=== PATIENT | male | born 1955 | race Caucasian/White ===

== ENCOUNTER 2017-02-21 12:48 | Emergency (ER) | payer OTHER, MEDICARE ==
[2017-02-21 13:05] VITALS: BP 167/111
[2017-02-21] MEDS ORDERED: Ketorolac 30 MG/ML SDV IM ONE (13:48)
--- NOTE | 2017-02-21 13:57 | EDM.PDOC ---
ED HPI GENERAL MEDICAL PROBLEM - General Chief Complaint: Back Pain or Injury Stated Complaint: FELL AND HURT BACK Time Seen by Provider: 02/21/17 13:22 Source of Information: Reports: Patient History Limitations: Reports: No Limitations - History of Present Illness INITIAL COMMENTS - FREE TEXT/NARRATIVE: Patient presents to ER today for complaints of low back pain, radiation to left posterior thigh and pain to knee with instability after a fall yesterday at 1630. Duration: Hour(s): Location: Reports: Back, Lower Extremity, Left Quality: Reports: Ache, Burning, Throbbing Severity: Moderate Improves with: Reports: Other (rest) Worsens with: Reports: Movement Context: Reports: Activity Associated Symptoms: Reports: No Other Symptoms Treatments [employer]: Reports: Other (see below) (hydrocodone) - Related Data Allergies Allergy/AdvReac Type Severity Reaction Status Date / Time clindamycin Allergy Bradycardia Verified 02/21/17 13:10 Sulfa (Sulfonamide Allergy Lethargy Verified 10/16/13 10:06 Antibiotics) venom-honey bee Allergy Anaphylactic Verified 11/24/14 07:46 [bee venom (honey bee)] Shock Home Meds: Home Meds Albuterol Sulfate [Proair Hfa] 8.5 gm IH QID PRN 10/16/13 [History] Calcium Carbonate/Vitamin D3 [Calcium 500 + Vit D 200 Tablet] 600 each PO BID [History] Cyclobenzaprine [Flexeril] 10 mg PO TID PRN 10/16/13 [History] Fluticasone/Salmeterol [Advair 100-50 Diskus] 1 puff INH BID 10/16/13 [History] Furosemide [Lasix] 10 mg PO ASDIRECTED 10/16/13 [History] Gabapentin [Gabapentin] 1,200 mg PO BID 10/16/13 [History] Hydrocodone/Acetaminophen [[place] 10-325] 10 tab PO Q4H PRN 10/16/13 [History] Magnesium Amino Acid Chelate [Magnesium] 100 mg PO DAILY 10/16/13 [History] Multivitamin [Men's Multi-Vitamin] 1 each PO DAILY 10/16/13 [History] Mycophenolate Mofetil [Mycophenolate Mofetil] 1,500 mg PO BID 10/16/13 [History] Propranolol [Inderal LA 24 Hr] 120 mg PO BEDTIME 10/16/13 [History] Warfarin Sodium [Warfarin Sodium] 4 mg PO ASDIRECTED 10/16/13 [History] predniSONE [Prednisone] 20 mg PO DAILY 10/16/13 [History] fentaNYL [Duragesic] 50 mcg TOP ASDIRECTED 01/30/14 [History] Warfarin [Coumadin] 3 mg PO ASDIRECTED 11/24/14 [History] amLODIPine [Norvasc] 1 tab PO DAILY 02/21/17 [History] Past Medical History Cardiovascular History: Reports: Hypertension Respiratory History: Reports: Cystic Fibrosis, PE Genitourinary History: Reports: Renal Disease Musculoskeletal History: Reports: Back Pain, Chronic Other Musculoskeletal History: Spinal surgeries. Is managed through Dr. Cuba of [facility] [place], [place]. Endocrine/Metabolic History: Reports: Hypothyroidism, Other (See Below) Other Endocrine/Metabolic History: wagners - Past Surgical History Musculoskeletal Surgical History: Reports: Knee Replacement, Other (See Below) Other Musculoskeletal Surgeries/Procedures:: spinal fusion Social & Family History - Tobacco Use Smoking Status *Q: Never Smoker Second Hand Smoke Exposure: No - Alcohol Use Days Per Week of Alcohol Use: 0 - Recreational Drug Use Recreational Drug Use: No ED ROS GENERAL - Review of Systems Review Of Systems: See Below Constitutional: Reports: No Symptoms, Other (Patient reports he has been attempting to decrease amount of fentanyl patch use and opiate use. He was on fentanyl 100mcg patch previously. Now He uses 62mcg patch. He was on oxy, he is now on hydrocodone. He reports having to take up to 10 hydrocodone in one day to control his pain. ). Denies: Fever, Chills, Malaise, Weakness HEENT: Reports: No Symptoms Respiratory: Denies: Shortness of Breath, Wheezing, Pleuritic Chest Pain, Cough , Sputum Cardiovascular: Denies: Chest Pain, Blood Pressure Problem, Dyspnea on Exertion , Edema, Lightheadedness, Palpitations, Syncope Endocrine: Reports: No Symptoms GI/Abdominal: Reports: Nausea, Other (Nausea with significant pain. ). Denies: Abdominal Pain, Constipation, Diarrhea, Hematemesis, Hematochezia, Vomiting : Reports: Other (Patient denies change in perineal sensation or function. ). Denies: Discharge, Dysuria, Frequency, Hematuria, Incontinence, Urgency, Urinary Retention Musculoskeletal: Reports: Back Pain, Joint Pain, Joint Swelling, Muscle Pain, Other (Left knee pain. Low back pain, denies bilateral saddle anesthesia and bilateral sciatica. He denies IV drug use. ) Skin: Reports: No Symptoms. Denies: Cyanosis, Bruising, Pruritis, Rash, Erythema, Wound, Change in Color Neurological: Reports: Other (Patient reports difficulty ambulating due to chronic hyperfelxion of left knee and chronic low back pain. Limping gait favoring left leg. ). Denies: Headache, Syncope, Tingling, Weakness, Change in Speech Psychiatric: Reports: No Symptoms Hematologic/Lymphatic: Reports: No Symptoms Immunologic: Reports: No Symptoms Free Text/Narrative/Comment: Patient also reports allergies to cymbalta and lurica. ED EXAM,LOWER BACK PAIN/INJURY - Physical Exam Exam: See Below Exam Limited By: No Limitations General Appearance: Alert, WD/WN, No Apparent Distress, Other (Patient has been working at his local cabin getting it ready. He does this work on his own without assistance. ) Eye Exam: Bilateral Eye: Normal Inspection, PERRL, Vision Changes Ears: Normal External Exam, Normal Canal, Hearing Grossly Normal, Normal TMs Nose: Normal Inspection, Normal Mucosa, No Blood Throat/Mouth: Normal Inspection, Normal Lips, Normal Teeth, Normal Gums, Normal Oropharynx, Normal Voice, No Airway Compromise Head: Atraumatic, Normocephalic Neck: Normal Inspection, Non-Tender, Full Range of Motion Respiratory/Chest: No Respiratory Distress, Lungs Clear, Normal Breath Sounds, No Accessory Muscle Use, Chest Non-Tender Cardiovascular: Normal Peripheral Pulses, Regular Rate, Rhythm, No Edema, No Gallop, No Murmur, No Rub GI/Abdominal: Normal Bowel Sounds, Soft, Non-Tender, No Organomegaly, No Distention, No Mass Back Exam: Normal Inspection, Full Range of Motion, Other (Patient complains of pain with radiculopathy to left buttock and posterior left thigh. ). No: CVA Tenderness (R), CVA Tenderness (L), Decreased Range of Motion, Muscle Spasm, Paraspinal Tenderness, Vertebral Tenderness Extremities: Normal Inspection, Other (Pain to left knee with external and internal rotation. Past left TKA. Edema noted to left knee without erythema. Right lower extremity normal. Limping gait favoring left leg - slight. ) Neurological: Alert, Normal Mood/Affect, Normal Dorsiflexion, CN II-XII Intact, Oriented x 3, Other (Negative straight leg raise to bilateral legs. ). No: Tremor, Saddle Anesthesia, Difficulty Walking Psychiatric: Normal Affect, Normal Mood Skin Exam: Warm, Dry, Intact, Normal Color, No Rash Lymphatic: No Adenopathy Course - Vital Signs Last Recorded V/S: Last Vital Signs Temp 37.1 C 02/21/17 13:20 Pulse 95 02/21/17 13:20 Resp 16 02/21/17 13:20 BP 167/111 H 02/21/17 13:20 Pulse Ox 95 02/21/17 13:20 - Orders/Labs/Meds Orders: Active Orders 24 hr Category Date Time Status Knee 3V Lt [CR] Stat Exams 02/21/17 13:50 Ordered Lumbar Spine 2 or 3V [CR] Stat Exams 02/21/17 13:51 Ordered Sacroiliac Joint Min 3V [CR] Stat Exams 02/21/17 13:51 Taken fentaNYL [Duragesic] Med 02/21/17 15:00 Active 100 mcg TRDERM Q72H Medication Orders Fentanyl (Duragesic) 100 mcg TRDERM Q72H NANCY Last Admin: 02/21/17 14:56 Dose: 100 mcg Patient to radiology, chronic use of steroid. Meds: Medications Generic Name Dose Route Start Last Admin Trade Name Freq PRN Reason Stop Dose Admin Fentanyl 100 mcg 02/21/17 15:00 02/21/17 14:56 Duragesic TRDERM 100 mcg Q72H NANCY Administration Discontinued Medications Generic Name Dose Route Start Last Admin Trade Name Freq PRN Reason Stop Dose Admin Ketorolac Tromethamine 30 mg 02/21/17 13:48 02/21/17 14:13 Toradol IM 02/21/17 13:49 30 mg ONETIME ONE Administration Remove current 62.5 mcg fentanyl patch, replace with 100mcg patch. - Radiology Interpretation Free Text/Narrative:: X-rays reviewed with Dr. Perez. No acute injury or findings noted. - Re-Assessments/Exams Free Text/Narrative Re-Assessment/Exam: 02/21/17 14:57 Pain slightly improved after use of toradol 30mg IM. 02/21/17 15:00 Free Text/Narrative Re-Assessment/Exam: 02/21/17 14:25 Reviewed x-rays with patient, discussed use of pain medication and follow up with pain clinic. Patient questions answered, he is in agreement with plan. Departure - Departure Time of Disposition: 14:47 Disposition: Home, Self-Care 01 Condition: fair Clinical Impression: Left lateral knee pain, Chronic low back pain - Discharge Information Instructions: Knee Pain, Back Pain, Adult Referrals: PCP,None [Primary Care Provider] - Forms: ED Department Discharge Additional Instructions: Your x-rays today were negative for acute injury or fracture. You can increase your fentanyl pain patch to 100mcg use. You are provided a written prescription for 2 additional patches. Use these as directed and report to your pain specialist Dr. Cuba at [facility]. You may also take hydrocodone as directed, making sure not to use more then prescribed. Stay hydrated and take your time walking to prevent falls. - My Orders Last 24 Hours: My Active Orders 02/21/17 13:50 Knee 3V Lt [CR] Stat 02/21/17 13:51 Lumbar Spine 2 or 3V [CR] Stat Sacroiliac Joint Min 3V [CR] Stat 02/21/17 15:00 fentaNYL [Duragesic] 100 mcg TRDERM Q72H - Assessment/Plan Last 24 Hours: My Active Orders 02/21/17 13:50 Knee 3V Lt [CR] Stat 02/21/17 13:51 Lumbar Spine 2 or 3V [CR] Stat Sacroiliac Joint Min 3V [CR] Stat 02/21/17 15:00 fentaNYL [Duragesic] 100 mcg TRDERM Q72H Assessment:: Left knee pain status post fall and chronic low back pain. Plan: Patient x-rays today were negative for acute injury or fracture. He can increase your fentanyl pain patch to 100mcg use. He was provided a written prescription for 2 additional patches. He is to use these pain medications s directed and report to your pain specialist Dr. Cuba at [facility]. He was also provided #12 tabs hydrocodone to use as directed, making sure not to use more then prescribed. Stay hydrated and take your time walking to prevent falls.
[2017-02-21] MEDS ORDERED: fentaNYL 100 MCG/HR Transdermal Patch TRDERM SCH (15:00)
--- NOTE | 2017-02-22 09:55 | CR ---
Left knee There is been a prior knee arthroplasty. The prosthetic components are well aligned and seated. Ther e is no evidence of fracture or joint effusion. Impression: 1. No acute findings.
--- NOTE | 2017-02-22 10:01 | CR ---
L-spine There are postsurgical changes at L4/5. There are laminectomy changes. Posterior rods and pedicle sc rews are intact. There is grade 1 spondylolisthesis at L4/5. There are no findings of acute fracture . There are degenerative findings throughout the lumbar spine. Impression: 1. No acute findings.
--- NOTE | 2017-02-22 10:02 | CR ---
SI joints The SI joints are symmetric. The sacrum is intact without fracture. There is mild degenerative spurr ing inferiorly. Impression: 1. No acute findings.
== END 2017-02-21 15:19 | disposition home or self-care (01) ==
LOC: JP.ED 12:48
DX: M54.5 Low back pain (principal); G89.29 Other chronic pain; M25.562 Pain in left knee; I10 Essential (primary) hypertension; E03.9 Hypothyroidism, unspecified; Z86.711 Personal history of pulmonary embolism; Z96.659 Presence of unspecified artificial knee joint; Z98.1 Arthrodesis status; Z79.01 Long term (current) use of anticoagulants; Z79.899 Other long term (current) drug therapy; Z88.1 Allergy status to other antibiotic agents; Z88.2 Allergy status to sulfonamides; Z91.030 Bee allergy status; W19.XXXA Unspecified fall, initial encounter
CPT/HCPCS: 72100; 72202; 73562; 96372; 99284; A9270; J1885; 99283

== ENCOUNTER 2018-03-19 11:46 | Emergency (ER) | payer OTHER, MEDICARE ==
[2018-03-19] MEDS ORDERED: Ertapenem 1 GM Vial IVPUSH ONE (12:38)
--- NOTE | 2018-03-19 12:51 | EDM.PDOC ---
ED HPI GENERAL MEDICAL PROBLEM - General Chief Complaint: Upper Extremity Injury/Pain Stated Complaint: POST SURGICAL KNEE INFECTION Time Seen by Provider: 03/19/18 12:20 Source of Information: Reports: Patient, Family History Limitations: Reports: No Limitations - History of Present Illness INITIAL COMMENTS - FREE TEXT/NARRATIVE: 62-year-old male with an ongoing left leg inflammatory problem after surgery, redness, swelling, purulent drainage from his surgical incision. He just had an orthopedic checked yesterday and is on chronic doxycycline twice daily. It sounds like he was reassured, and the plan was to do a debridement next . However over the past 12 hours she's had increased swelling and drainage and now is developing chills and a fever. Location: Reports: Lower Extremity, Left Severity: Moderate Associated Symptoms: Reports: Fever/Chills - Related Data Allergies Allergy/AdvReac Type Severity Reaction Status Date / Time clindamycin Allergy Bradycardia Verified 03/19/18 12:12 Sulfa (Sulfonamide Allergy Lethargy Verified 03/19/18 12:12 Antibiotics) venom-honey bee Allergy Anaphylactic Verified 03/19/18 12:12 [bee venom (honey bee)] Shock Home Meds: Home Meds Albuterol Sulfate [Proair Hfa] 8.5 gm IH QID PRN 10/16/13 [History] Calcium Carbonate/Vitamin D3 [Calcium 500 + Vit D 200 Tablet] 600 each PO BID [History] Cyclobenzaprine [Flexeril] 10 mg PO TID PRN 10/16/13 [History] Fluticasone/Salmeterol [Advair 100-50 Diskus] 1 puff INH BID 10/16/13 [History] Furosemide [Lasix] 20 mg PO ASDIRECTED 10/16/13 [History] Gabapentin 1,200 mg PO BID 10/16/13 [History] Hydrocodone/Acetaminophen [[place] 10-325] 10 tab PO Q4H PRN 10/16/13 [History] Magnesium Amino Acid Chelate [Magnesium] 100 mg PO DAILY 10/16/13 [History] Multivitamin [Men's Multi-Vitamin] 1 each PO DAILY 10/16/13 [History] Propranolol [Inderal LA 24 Hr] 120 mg PO BEDTIME 10/16/13 [History] Warfarin Sodium 4 mg PO ASDIRECTED 10/16/13 [History] predniSONE [Prednisone] 20 mg PO DAILY 10/16/13 [History] Warfarin [Coumadin] 3 mg PO ASDIRECTED 11/24/14 [History] amLODIPine [Norvasc] 2 tab PO DAILY 02/21/17 [History] Amitriptyline [Elavil] 03/19/18 [History] Doxycycline [Vibramycin] 03/19/18 [History] Ketorolac Tromethamine 03/19/18 [History] Potassium Chloride 03/19/18 [History] oxyCODONE HCl/Acetaminophen [Oxycodone-Acetaminophen 10-300] 03/19/18 [History] Past Medical History Cardiovascular History: Reports: Hypertension Respiratory History: Reports: Cystic Fibrosis, PE Genitourinary History: Reports: Renal Disease Musculoskeletal History: Reports: Back Pain, Chronic Other Musculoskeletal History: Spinal surgeries. Is managed through Dr. Cuba of [facility] [place], [place]. Endocrine/Metabolic History: Reports: Hypothyroidism, Other (See Below) Other Endocrine/Metabolic History: wagners - Past Surgical History Musculoskeletal Surgical History: Reports: Knee Replacement, Other (See Below) Other Musculoskeletal Surgeries/Procedures:: spinal fusion Social & Family History - Tobacco Use Smoking Status *Q: Never Smoker Review of Systems - Review of Systems Review Of Systems: See Below Constitutional: Reports: Fever Eyes: Reports: No Symptoms Respiratory: Denies: Shortness of Breath Cardiovascular: Denies: Chest Pain GI/Abdominal: Denies: Abdominal Pain Neurological: Reports: Syncope Psychiatric: Reports: No Symptoms ED EXAM, GENERAL - Physical Exam Exam: See Below Exam Limited By: No Limitations General Appearance: Alert, No Apparent Distress Respiratory/Chest: No Respiratory Distress Cardiovascular: Regular Rate, Rhythm. No: Tachycardia Extremities: Other (Left leg has a long healed surgical incision with surrounding erythema, swelling, fluctuance, and what appears to be cloudy or purulent drainage from the incision. It's tender to palpation. He still has fairly decent range of motion passively and actively.) Course - Vital Signs Last Recorded V/S: Last Vital Signs Temp 102.5 F H 03/19/18 12:22 Pulse 88 03/19/18 12:22 Resp 18 03/19/18 12:22 BP 115/54 L 03/19/18 12:22 Pulse Ox 92 L 03/19/18 12:22 - Orders/Labs/Meds Orders: Active Orders 24 hr Category Date Time Status CULTURE WOUND + SMEAR [RM] Stat Lab 03/19/18 12:47 Results Meds: Medications Discontinued Medications Generic Name Dose Route Start Last Admin Trade Name Dago PRN Reason Stop Dose Admin Acetaminophen 1,000 mg 03/19/18 12:59 03/19/18 13:05 Tylenol Extra Strength PO 03/19/18 13:00 1,000 mg ONETIME ONE Administration Ertapenem 1 gm/ Sodium 100 mls @ 200 mls/hr 03/19/18 13:00 03/19/18 13:04 Chloride IV 03/19/18 13:29 200 mls/hr ONETIME ONE Administration - Re-Assessments/Exams Free Text/Narrative Re-Assessment/Exam: 03/19/18 12:49 A culture was taken from the drainage and sent to lab. An IV was started, the patient was given 1 g of Invanz IV and his plan is to go directly to [facility] to be seen at the hospital he got his knee surgery. He likely will only need orthopedic consultation and inpatient antibiotic treatment. He likely has an indication for surgery before next . Departure - Departure Time of Disposition: 14:16 Disposition: DC/Tfer to Other 70 Condition: Fair Clinical Impression: Postoperative infection of knee Qualifiers: Encounter type: initial encounter Qualified Code(s): T81.4XXA - Infection following a procedure, initial encounter - Discharge Information Instructions: Wound Infection Referrals: PCP,None [Primary Care Provider] - Forms: ED Department Discharge Care Plan Goals: Go directly to [facility] to be seen at [facility] in the emergency room, anticipate admission. They have been informed that you are coming. - My Orders Last 24 Hours: My Active Orders 03/19/18 12:47 CULTURE WOUND + SMEAR [RM] Stat - Assessment/Plan Last 24 Hours: My Active Orders 03/19/18 12:47 CULTURE WOUND + SMEAR [RM] Stat
[2018-03-19] MEDS ORDERED: Acetaminophen 500 MG Tab PO ONE (12:59)
[2018-03-19] MEDS ORDERED: Ertapenem 1 GM in Sodium Chloride 0.9% 100 ML IV ONE (13:00)
[2018-03-19 13:35] VITALS: BP 115/54
== END 2018-03-19 14:17 | disposition other institution (70) ==
LOC: JP.ED 11:46
DX: T81.4XXA Infection following a procedure, initial encounter (principal); I10 Essential (primary) hypertension; Z88.2 Allergy status to sulfonamides; Z91.030 Bee allergy status; Z88.1 Allergy status to other antibiotic agents; Z79.899 Other long term (current) drug therapy; Z98.890 Other specified postprocedural states; Z96.652 Presence of left artificial knee joint
CPT/HCPCS: 87070; 87077; 87186; 87205; 96365; 99284; A9270; J1335; J7030

== ENCOUNTER 2020-03-24 18:05 | Emergency (ER) | payer MEDICARE, OTHER ==
[2020-03-24 18:28] VITALS: BP 158/84; PULSE 63
--- NOTE | 2020-03-24 19:06 | EDM.PDOC ---
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 It occurred yesterday when he was using a router. His tetanus is up-to-date. - Related Data Allergies Allergy/AdvReac Type Severity Reaction Status Date / Time clindamycin Allergy Bradycardia Verified 03/19/18 12:12 Sulfa (Sulfonamide Allergy Lethargy Verified 03/19/18 12:12 Antibiotics) venom-honey bee Allergy Anaphylactic Verified 03/19/18 12:12 [bee venom (honey bee)] Shock Home Meds: Home Meds Albuterol Sulfate [Proair Hfa] 8.5 gm IH QID PRN 10/16/13 [History] Calcium Carbonate/Vitamin D3 [Calcium 500 + Vit D 200 Tablet] 600 mg PO BID 10/16/13 [History] Cyclobenzaprine [Flexeril] 10 mg PO TID PRN 10/16/13 [History] Fluticasone/Salmeterol [Advair 100-50 Diskus] 1 puff INH BID 10/16/13 [History] Furosemide [Lasix] 20 mg PO ASDIRECTED PRN 10/16/13 [History] Gabapentin 1,500 mg PO TID 10/16/13 [History] Hydrocodone/Acetaminophen [[place] 10-325] 6 tab PO Q4H PRN 10/16/13 [History] Magnesium Amino Acid Chelate [Magnesium] 100 mg PO DAILY 10/16/13 [History] Multivitamin [Men's Multi-Vitamin] 1 each PO DAILY 10/16/13 [History] Propranolol [Inderal LA 24 Hr] 240 mg PO BEDTIME 10/16/13 [History] predniSONE [Prednisone] 20 mg PO DAILY 10/16/13 [History] Warfarin [Coumadin] 3 mg PO ASDIRECTED 11/24/14 [History] Ketorolac Tromethamine 10 mg PO ASDIRECTED PRN 03/19/18 [History] Potassium Chloride 10 meq PO DAILY 03/19/18 [History] Aspirin 81 mg PO DAILY 03/24/20 [History] Morphine [MS Contin] 15 mg PO BID 03/24/20 [History] Naloxegol Oxalate [Movantik] 25 mg PO SA 03/24/20 [History] atorvaSTATin [Lipitor] 40 mg PO DAILY 03/24/20 [History] cephALEXin [Keflex] 500 mg PO BID 03/24/20 [History] Past Medical History Cardiovascular History: Reports: Hypertension Respiratory History: Reports: Cystic Fibrosis, PE Genitourinary History: Reports: Renal Disease Musculoskeletal History: Reports: Back Pain, Chronic Other Musculoskeletal History: Spinal surgeries. Is managed through Dr. Cuba of [facility] [place], [place]. Endocrine/Metabolic History: Reports: Hypothyroidism, Other (See Below) Other Endocrine/Metabolic History: wagners - Past Surgical History Musculoskeletal Surgical History: Reports: Knee Replacement, Other (See Below) Other Musculoskeletal Surgeries/Procedures:: spinal fusion Social & Family History - Tobacco Use Smoking Status *Q: Never Smoker - Caffeine Use Caffeine Use: Reports: Soda - Recreational Drug Use Recreational Drug Use: No ED ROS GENERAL - Review of Systems Review Of Systems: See Below Constitutional: Reports: No Symptoms Musculoskeletal: Reports: No Symptoms Skin: Reports: Other (Superficial laceration palmar aspect right hand measures approximately 1 cm in size.) ED EXAM, SKIN/RASH Exam: See Below Exam Limited By: No Limitations General Appearance: Alert, WD/WN, No Apparent Distress Skin: Other (Per Fischl 1 cm laceration palmar aspect of right hand. No tendons are involved. Neurovascular exam is normal.) Course - Vital Signs Text/Narrative:: This patient has a superficial laceration on the palmar aspect of the right hand. There are no tendons involved. Neurovascular exam is normal. The wound occurred 24 hours ago. It can heal secondarily and he will keep it covered with antibiotic ointment and a Band-Aid. He will watch for signs of secondary infection. He is somewhat immunocompromised since he is on prednisone for Wendy's granulomatosis. The patient agrees he will follow-up as needed. His tetanus is up-to-date. Last Recorded V/S: Last Vital Signs Temp 36.4 C 03/24/20 18:30 Pulse 63 03/24/20 18:30 Resp 16 03/24/20 18:30 BP 158/84 H 03/24/20 18:30 Pulse Ox 95 03/24/20 18:30 Departure - Departure Time of Disposition: 19:02 Disposition: Home, Self-Care 01 Condition: Good Clinical Impression: Hand laceration - Discharge Information *PRESCRIPTION DRUG MONITORING PROGRAM REVIEWED*: No *COPY OF PRESCRIPTION DRUG MONITORING REPORT IN PATIENT ROSA: No Referrals: PCP,None [Primary Care Provider] - Additional Instructions: Keep the wound clean and covered with antibiotic ointment and a Band-Aid. Follow-up with your doctor as needed for redness, pain, discharge and fever. Return here as needed. Sepsis Event Note (ED) - Evaluation Sepsis Screening Result: No Definite Risk - Focused Exam Vital Signs: Vital Signs Temp Pulse Resp BP Pulse Ox 03/24/20 18:30 36.4 C 63 16 158/84 H 95 03/24/20 18:26 36.4 C 63 16 158/84 H 95
== END 2020-03-24 19:15 | disposition home or self-care (01) ==
LOC: JP.ED 18:05
DX: S61.411A Laceration without foreign body of right hand, initial encounter (principal); I10 Essential (primary) hypertension; Z88.1 Allergy status to other antibiotic agents; Z88.2 Allergy status to sulfonamides; Z91.030 Bee allergy status; Z79.899 Other long term (current) drug therapy; Z79.82 Long term (current) use of aspirin; Z79.01 Long term (current) use of anticoagulants; Z86.711 Personal history of pulmonary embolism; W26.8XXA Contact with other sharp object(s), not elsewhere classified, initial encounter
CPT/HCPCS: 99282

== ENCOUNTER 2020-03-27 14:49 | Emergency (ER) | payer MEDICARE, OTHER ==
[2020-03-27] MEDS ORDERED: methylPREDNISolone Sodium Succinate 125 MG/2 ML SDV IM ONE (15:29)
[2020-03-27] MEDS ORDERED: diphenhydrAMINE 25 MG Cap PO ONE (15:30)
--- NOTE | 2020-03-27 15:36 | EDM.PDOC ---
ED HPI GENERAL MEDICAL PROBLEM - General Chief Complaint: Bite:Animal, Insect Stated Complaint: MUTLIPLE BEE STINGS Time Seen by Provider: 03/27/20 15:31 Source of Information: Reports: Patient History Limitations: Reports: No Limitations - History of Present Illness INITIAL COMMENTS - FREE TEXT/NARRATIVE: pt was stung 6 times on the rt arm. He had a epipen and he did take that right away. He felt sob at first and now he is doing welll. Onset: Today, Sudden Duration: Hour(s): Location: Reports: Generalized Associated Symptoms: Reports: Shortness of Breath, Other (pt felt dizzy. he did not develop a rash. ) Knee Pain Score (Numeric/FACES): 7 - Related Data Allergies Allergy/AdvReac Type Severity Reaction Status Date / Time clindamycin Allergy Bradycardia Verified 03/27/20 15:09 Sulfa (Sulfonamide Allergy Lethargy Verified 03/27/20 15:09 Antibiotics) venom-honey bee Allergy Anaphylactic Verified 03/27/20 15:09 [bee venom (honey bee)] Shock Home Meds: Home Meds Albuterol Sulfate [Proair Hfa] 8.5 gm IH QID PRN 10/16/13 [History] Calcium Carbonate/Vitamin D3 [Calcium 500 + Vit D 200 Tablet] 600 mg PO BID 10/16/13 [History] Cyclobenzaprine [Flexeril] 10 mg PO TID PRN 10/16/13 [History] Fluticasone/Salmeterol [Advair 100-50 Diskus] 1 puff INH BID 10/16/13 [History] Furosemide [Lasix] 20 mg PO ASDIRECTED PRN 10/16/13 [History] Gabapentin 1,500 mg PO TID 10/16/13 [History] Hydrocodone/Acetaminophen [[place] 10-325] 6 tab PO ASDIRECTED PRN 10/16/13 [History] Magnesium Amino Acid Chelate [Magnesium] 100 mg PO DAILY 10/16/13 [History] Multivitamin [Men's Multi-Vitamin] 1 each PO DAILY 10/16/13 [History] Propranolol [Inderal LA 24 Hr] 240 mg PO BEDTIME 10/16/13 [History] predniSONE [Prednisone] 20 mg PO DAILY 10/16/13 [History] Warfarin [Coumadin] 3 mg PO ASDIRECTED 11/24/14 [History] Ketorolac Tromethamine 10 mg PO ASDIRECTED PRN 03/19/18 [History] Potassium Chloride 10 meq PO DAILY 03/19/18 [History] Aspirin 81 mg PO DAILY 03/24/20 [History] Morphine [MS Contin] 15 mg PO BID 03/24/20 [History] Naloxegol Oxalate [Movantik] 25 mg PO SA 03/24/20 [History] atorvaSTATin [Lipitor] 40 mg PO DAILY 03/24/20 [History] cephALEXin [Keflex] 500 mg PO TID 03/24/20 [History] Past Medical History Cardiovascular History: Reports: Hypertension Respiratory History: Reports: PE Genitourinary History: Reports: Renal Disease Musculoskeletal History: Reports: Back Pain, Chronic Other Musculoskeletal History: Spinal surgeries. Is managed through Dr. [place] of [facility] [place], [place]. Neurological History: Reports: Brain Injury, CVA, Migraines Endocrine/Metabolic History: Reports: Hypothyroidism, Other (See Below) Other Endocrine/Metabolic History: wagners Immunologic History: Reports: Immunosuppression - Past Surgical History Head Surgeries/Procedures: Reports: None Cardiovascular Surgical History: Reports: None Respiratory Surgical History: Reports: None Male Surgical History: Reports: None Endocrine Surgical History: Reports: None Neurological Surgical History: Reports: None Musculoskeletal Surgical History: Reports: Knee Replacement, Other (See Below) Other Musculoskeletal Surgeries/Procedures:: spinal fusion Dermatological Surgical History: Reports: None Social & Family History - Tobacco Use Smoking Status *Q: Never Smoker - Caffeine Use Caffeine Use: Reports: Soda - Recreational Drug Use Recreational Drug Use: No ED ROS GENERAL - Review of Systems Review Of Systems: See Below Constitutional: Reports: No Symptoms HEENT: Reports: No Symptoms Respiratory: Reports: Shortness of Breath Cardiovascular: Reports: No Symptoms Endocrine: Reports: No Symptoms GI/Abdominal: Reports: No Symptoms : Reports: No Symptoms Musculoskeletal: Reports: No Symptoms Skin: Reports: No Symptoms Neurological: Reports: No Symptoms Psychiatric: Reports: Anxiety ED EXAM, ANIMAL BITE - Physical Exam Exam: See Below Text/Narrative:: pt was stung by bees about 6 times on the rt arm. He took a epipen right away and he never developed hives. He wasquite sob. Exam Limited By: No Limitations General Appearance: Alert, Anxious, Mild Distress, Other (pupils are equal and reactive. ) Ears: Normal TMs Nose: Normal Inspection Throat/Mouth: Normal Inspection Head: Atraumatic Neck: Normal Inspection Respiratory/Chest: No Respiratory Distress Cardiovascular: Regular Rate, Rhythm GI/Abdominal: Soft, Non-Tender (Male) Exam: Deferred Rectal (Males) Exam: Deferred Back Exam: Normal Inspection Extremities: Normal Inspection Neurological: Alert, Oriented, Normal Cognition Psychiatric: Anxious Course - Vital Signs Last Recorded V/S: Last Vital Signs Temp 36.9 C 03/27/20 15:09 Pulse 47 L 03/27/20 16:06 Resp 16 03/27/20 15:09 BP 136/75 03/27/20 16:06 Pulse Ox 95 03/27/20 16:06 - Orders/Labs/Meds Orders: Active Orders 24 hr Category Date Time Status Tibia Fibula Rt [CR] Stat Exams 03/27/20 16:00 Taken Labs: Laboratory Tests 03/27/20 Range/Units 16:12 PT 20.8 H (9.5-12.0) sec INR 2.00 H (0.80-1.20) Meds: Medications Discontinued Medications Generic Name Dose Route Start Last Admin Trade Name Dago PRN Reason Stop Dose Admin Bacitracin 1 dose 03/27/20 16:01 03/27/20 16:18 Bacitracin Oint 1 Gm TOP 03/27/20 16:02 1 dose ONETIME ONE Administration Diphenhydramine HCl 25 mg 03/27/20 15:30 03/27/20 15:39 Benadryl PO 03/27/20 15:31 25 mg ONETIME ONE Administration Methylprednisolone Sodium Succinate 125 mg 03/27/20 15:29 03/27/20 15:39 Solu-Medrol IM 03/27/20 15:30 125 mg ONETIME ONE Administration - Re-Assessments/Exams Free Text/Narrative Re-Assessment/Exam: 03/27/20 15:36 pt was not given further epinephrine. He was given solumedrol 125 and benadryl 25 po. He is feeling much better. 03/27/20 17:29 pt is having alot of pain in the ant lower leg. He hit it on a trailer. He is having trouble sleeping at nite because of the pain. He has skin abrasions which were cleaned up and bacatracin was applied. A inr was obtained which is now up to 2. He ran out of his coumadin but is back on it now, 03/27/20 17:33 The exam of the rt leg --shows no calf tenderness . He is specificlly tender in the front of the leg. Departure - Departure Time of Disposition: 17:31 Disposition: Home, Self-Care 01 Clinical Impression: Allergic reaction to bee sting, Contusion of right leg - Discharge Information Referrals: PCP,None [Primary Care Provider] - Forms: ED Department Discharge Care Plan Goals: tonight use benadryl 50 mg, moist warm packs to the rt anterior lower leg, predisone 10 mg daily for 5 days, refill of epipen. If leg pain is persistent he should see his own DrAmy Sepsis Event Note (ED) - Evaluation Sepsis Screening Result: No Definite Risk - Focused Exam Vital Signs: Vital Signs Temp Pulse Resp BP Pulse Ox 03/27/20 16:06 47 L 136/75 95 03/27/20 15:32 56 L 142/83 H 96 03/27/20 15:09 36.9 C 54 L 16 159/72 H 97 03/27/20 15:05 36.9 C 54 L 16 159/72 H 97 - My Orders Last 24 Hours: My Active Orders 03/27/20 16:00 Tibia Fibula Rt [CR] Stat - Assessment/Plan Last 24 Hours: My Active Orders 03/27/20 16:00 Tibia Fibula Rt [CR] Stat
[2020-03-27] MEDS ORDERED: Bacitracin Oint 1 GM U/D Packet TOP ONE (16:01)
[2020-03-27 17:31] VITALS: BP 135/70; PULSE 45
--- NOTE | 2020-03-28 11:16 | CR ---
Tibia Fibula Rt CLINICAL HISTORY: Pain FINDINGS: Two views show no evidence of fracture or bone destruction. No soft tissue abnormality is seen. Patient has a total knee arthroplasty. Ankle mortise is anatomic. Impression: Total knee arthroplasty appears intact No fracture or osseous lesion
== END 2020-03-27 17:48 | disposition home or self-care (01) ==
LOC: JP.ED 14:49
DX: T63.441A Toxic effect of venom of bees, accidental (unintentional), initial encounter (principal); S80.11XA Contusion of right lower leg, initial encounter; I10 Essential (primary) hypertension; Z86.711 Personal history of pulmonary embolism; Z79.82 Long term (current) use of aspirin; Z88.2 Allergy status to sulfonamides; Z88.1 Allergy status to other antibiotic agents; Z79.01 Long term (current) use of anticoagulants; Z79.899 Other long term (current) drug therapy; Z86.73 Personal history of transient ischemic attack (TIA), and cerebral infarction without residual deficits; X58.XXXA Exposure to other specified factors, initial encounter
CPT/HCPCS: 36415; 73590; 85610; 96372; 99283; A9270; J2930

== ENCOUNTER 2020-05-29 09:15 | Emergency (ER) | payer MEDICARE, BC ==
[2020-05-29 09:44] VITALS: BP 166/74; PULSE 56
--- NOTE | 2020-05-29 10:16 | EDM.PDOC ---
ED HPI GENERAL MEDICAL PROBLEM - General Chief Complaint: General Stated Complaint: BACK PAIN Time Seen by Provider: 05/29/20 10:16 - History of Present Illness INITIAL COMMENTS - FREE TEXT/NARRATIVE: Patient presents emergency department complaining of some pain in his left upper back area after a fall. Does not sound like the fall was very terrible however he thinks that he may have broken a rib in his left upper back area. He denies any shortness of breath and the patient has multiple other ongoing medical issues that are currently being taken care of by his family doctor and pain clinic and orthopedist. He says he had an ankle that he needs surgery on but he says he cannot follow-up with any of those issues because he has work to do. He says the only reason he is here the only thing he wants evaluated is this pain in his left upper back area and he wants to make sure he does not have a broken bone. Patient incidentally also says he is almost second but he does also have fentanyl for breakthrough pain. Left Upper Chest Pain Score (Numeric/FACES): 8 - Related Data Allergies Allergy/AdvReac Type Severity Reaction Status Date / Time clindamycin Allergy Bradycardia Verified 05/29/20 09:45 Sulfa (Sulfonamide Allergy Lethargy Verified 05/29/20 09:45 Antibiotics) venom-honey bee Allergy Anaphylactic Verified 05/29/20 09:45 [bee venom (honey bee)] Shock Home Meds: Home Meds Albuterol Sulfate [Proair Hfa] 8.5 gm IH QID PRN 10/16/13 [History] Calcium Carbonate/Vitamin D3 [Calcium 500 + Vit D 200 Tablet] 600 mg PO BID 10/16/13 [History] Cyclobenzaprine [Flexeril] 10 mg PO TID PRN 10/16/13 [History] Fluticasone/Salmeterol [Advair 100-50 Diskus] 1 puff INH BID 10/16/13 [History] Furosemide [Lasix] 20 mg PO ASDIRECTED PRN 10/16/13 [History] Gabapentin 1,500 mg PO TID 10/16/13 [History] Hydrocodone/Acetaminophen [[place] 10-325] 6 tab PO ASDIRECTED PRN 10/16/13 [History] Magnesium Amino Acid Chelate [Magnesium] 100 mg PO DAILY 10/16/13 [History] Multivitamin [Men's Multi-Vitamin] 1 each PO DAILY 10/16/13 [History] Propranolol [Inderal LA 24 Hr] 240 mg PO BEDTIME 10/16/13 [History] predniSONE [Prednisone] 20 mg PO DAILY 10/16/13 [History] Warfarin [Coumadin] 3 mg PO ASDIRECTED 11/24/14 [History] Potassium Chloride 10 meq PO DAILY 03/19/18 [History] Aspirin 81 mg PO DAILY 03/24/20 [History] Morphine [MS Contin] 15 mg PO BID 03/24/20 [History] Naloxegol Oxalate [Movantik] 25 mg PO SA 03/24/20 [History] atorvaSTATin [Lipitor] 40 mg PO DAILY 03/24/20 [History] cephALEXin [Keflex] 500 mg PO TID 03/24/20 [History] Past Medical History HEENT History: Reports: Impaired Vision Cardiovascular History: Reports: High Cholesterol, Hypertension Respiratory History: Reports: PE Genitourinary History: Reports: Renal Calculus, Renal Disease Musculoskeletal History: Reports: Back Pain, Chronic Other Musculoskeletal History: Spinal surgeries. Neurological History: Reports: Brain Injury, CVA, Migraines Psychiatric History: Reports: PTSD Endocrine/Metabolic History: Reports: Hypothyroidism, Other (See Below) Other Endocrine/Metabolic History: wagners granulomatosis Immunologic History: Reports: Immunosuppression - Past Surgical History Head Surgeries/Procedures: Reports: None Neurological Surgical History: Reports: Spinal Fusion Musculoskeletal Surgical History: Reports: Knee Replacement Social & Family History - Tobacco Use Smoking Status *Q: Never Smoker - Caffeine Use Caffeine Use: Reports: Soda - Recreational Drug Use Recreational Drug Use: No ED ROS GENERAL - Review of Systems Review Of Systems: Comprehensive ROS is negative, except as noted in HPI. ED EXAM, GENERAL - Physical Exam Exam: See Below Exam Limited By: No Limitations General Appearance: Alert Ears: Normal External Exam Throat/Mouth: Normal Inspection Head: Atraumatic Neck: Normal Inspection Respiratory/Chest: No Respiratory Distress (Mild pain with palpation of the p eriscapular area on the left, no lower thoracic lung pain, breath sounds are clear and equal) Cardiovascular: Normal Peripheral Pulses, Regular Rate, Rhythm GI/Abdominal: Normal Bowel Sounds (Male) Exam: No Hernia Back Exam: Normal Inspection Extremities: Normal Inspection, Pedal Edema Neurological: Alert Psychiatric: Normal Affect Skin Exam: Warm, Intact Course - Vital Signs Text/Narrative:: Patient did well here in the ER and does not have any evidence of pneumothorax or fractured ribs that I can see, he is to take his home pain medicines and take it easy at home to make sure he is not up on any ladders or things where he could fall while he is taking his home pain medicine. Last Recorded V/S: Last Vital Signs Temp 97.8 F 05/29/20 09:46 Pulse 56 L 05/29/20 09:46 Resp 20 05/29/20 09:46 BP 166/74 H 05/29/20 09:46 Pulse Ox 98 05/29/20 09:46 - Orders/Labs/Meds Orders: Active Orders 24 hr Category Date Time Status Chest 2V [CR] Stat Exams 05/29/20 10:03 Taken Departure - Departure Time of Disposition: 11:17 Disposition: Home, Self-Care 01 Condition: Good Clinical Impression: Chest wall contusion - Discharge Information Instructions: Contusion, [id number] Referrals: PCP,None [Primary Care Provider] - 3 Days Forms: ED Department Discharge Sepsis Event Note (ED) - Evaluation Sepsis Screening Result: No Definite Risk - Focused Exam Vital Signs: Vital Signs Temp Pulse Resp BP Pulse Ox 05/29/20 09:46 97.8 F 56 L 20 166/74 H 98 05/29/20 09:43 97.8 F 56 L 20 166/74 H 98 - My Orders Last 24 Hours: My Active Orders 05/29/20 10:03 Chest 2V [CR] Stat - Assessment/Plan Last 24 Hours: My Active Orders 05/29/20 10:03 Chest 2V [CR] Stat
--- NOTE | 2020-05-29 11:23 | CR ---
CHEST: 2 view CLINICAL HISTORY:Left upper back pain COMPARISON:None FINDINGS: The heart size, pulmonary vascularity and hilar structures are normal. No infiltrate effusion or pneumothorax is seen. There are some left lower lateral rib deformities which may be from old fracture. Clinical correlation necessary IMPRESSION: No acute cardiopulmonary process. Left lower lateral rib deformities described above
== END 2020-05-29 11:38 | disposition home or self-care (01) ==
LOC: JP.ED 09:15
DX: S20.212A Contusion of left front wall of thorax, initial encounter (principal); I10 Essential (primary) hypertension; E78.00 Pure hypercholesterolemia, unspecified; Z88.2 Allergy status to sulfonamides; Z91.030 Bee allergy status; Z86.73 Personal history of transient ischemic attack (TIA), and cerebral infarction without residual deficits; Z88.1 Allergy status to other antibiotic agents; Z79.01 Long term (current) use of anticoagulants; Z79.82 Long term (current) use of aspirin; Z79.899 Other long term (current) drug therapy; W19.XXXA Unspecified fall, initial encounter
CPT/HCPCS: 71046; 71046-26; 99283-25

== ENCOUNTER 2020-06-05 18:52 | Emergency (ER) | payer MEDICARE, BC ==
[2020-06-05 19:29] VITALS: PULSE 97
--- NOTE | 2020-06-05 20:05 | EDM.PDOC ---
ED HPI GENERAL MEDICAL PROBLEM - General Chief Complaint: General Stated Complaint: MEDICAL Time Seen by Provider: 06/05/20 19:10 Source of Information: Reports: Patient History Limitations: Reports: No Limitations - History of Present Illness INITIAL COMMENTS - FREE TEXT/NARRATIVE: 64-year-old male presenting to this emergency department for evaluation of frequent falls. Reports a fall on gravel several days ago. Was seen in the emergency department due to chest pain following the fall. Was diagnosed with a chest wall contusion and was discharged home. Since that time reports several additional falls from standing and one fall today from a stepstool 1 step off the floor. Denies any loss of consciousness. Denies any pain after the fall. He is concerned that he is falling so frequently. Is having significant pain difficult to manage with his chronic pain regimen secondary to the left chest. His chronic pain regimen includes 15 mg of extended release morphine twice daily and 6 hydrocodone. 2 days ago he increased his hydrocodone to 20 for the day. He states he did this to try and get control of his pain. He has not done that today. Yesterday he states that he took one extra extended release morphine. Today he states he added a fentanyl patch, 50 mcg, which she had from previous prescription to his regimen. Patient states that he does not feel his increased falls and dizziness are due to side effects of the added pain medication stating he has been on much more than this in the past. He follows with a pain specialist out of [place]. He is currently residing alone in his cabin. 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 He denies any change in bowel or bladder habits. He denies any fever, cough, shortness of breath, nausea, vomiting or other symptoms. Chest Pain Score (Numeric/FACES): 7 - Related Data Allergies Allergy/AdvReac Type Severity Reaction Status Date / Time clindamycin Allergy Bradycardia Verified 06/05/20 19:09 Sulfa (Sulfonamide Allergy Lethargy Verified 06/05/20 19:09 Antibiotics) venom-honey bee Allergy Anaphylactic Verified 06/05/20 19:09 [bee venom (honey bee)] Shock Home Meds: Home Meds Albuterol Sulfate [Proair Hfa] 1 puff IH QID PRN 10/16/13 [History] Calcium Carbonate/Vitamin D3 [Calcium 500 + Vit D 200 Tablet] 600 mg PO BID 10/16/13 [History] Cyclobenzaprine [Flexeril] 10 mg PO TID PRN 10/16/13 [History] Fluticasone/Salmeterol [Advair 100-50 Diskus] 1 puff INH BID 10/16/13 [History] Furosemide [Lasix] 20 mg PO ASDIRECTED PRN 10/16/13 [History] Gabapentin 1,500 mg PO TID 10/16/13 [History] Hydrocodone/Acetaminophen [[place] 10-325] 1 tab PO Q4H PRN 10/16/13 [History] Magnesium Amino Acid Chelate [Magnesium] 100 mg PO DAILY 10/16/13 [History] Multivitamin [Men's Multi-Vitamin] 1 each PO DAILY 10/16/13 [History] Propranolol [Inderal LA 24 Hr] 240 mg PO BEDTIME 10/16/13 [History] predniSONE [Prednisone] 20 mg PO DAILY 10/16/13 [History] Warfarin [Coumadin] 3 mg PO ASDIRECTED 11/24/14 [History] Potassium Chloride 10 meq PO DAILY 03/19/18 [History] Aspirin 81 mg PO DAILY 03/24/20 [History] Morphine [MS Contin] 15 mg PO BID 03/24/20 [History] Naloxegol Oxalate [Movantik] 25 mg PO SA 03/24/20 [History] atorvaSTATin [Lipitor] 40 mg PO DAILY 03/24/20 [History] cephALEXin [Keflex] 500 mg PO TID 03/24/20 [History] Past Medical History HEENT History: Reports: Impaired Vision Cardiovascular History: Reports: Blood Clots/VTE/DVT, High Cholesterol, Hypertension Respiratory History: Reports: PE Genitourinary History: Reports: Renal Calculus, Renal Disease Musculoskeletal History: Reports: Back Pain, Chronic Other Musculoskeletal History: Spinal surgeries. Neurological History: Reports: Brain Injury, CVA, Migraines Psychiatric History: Reports: PTSD Endocrine/Metabolic History: Reports: Hypothyroidism, Other (See Below) Other Endocrine/Metabolic History: wagners granulomatosis Immunologic History: Reports: Immunosuppression - Past Surgical History Head Surgeries/Procedures: Reports: None Neurological Surgical History: Reports: Spinal Fusion Musculoskeletal Surgical History: Reports: Knee Replacement Social & Family History - Tobacco Use Smoking Status *Q: Never Smoker - Caffeine Use Caffeine Use: Reports: Soda - Recreational Drug Use Recreational Drug Use: No ED ROS GENERAL - Review of Systems Review Of Systems: Comprehensive ROS is negative, except as noted in HPI. Constitutional: Denies: Fever, Weakness, Fatigue Respiratory: Denies: Shortness of Breath, Cough Cardiovascular: Denies: Chest Pain, Dyspnea on Exertion, Orthopnea GI/Abdominal: Denies: Abdominal Pain, Diarrhea, Vomiting : Denies: Dysuria, Hematuria Musculoskeletal: Reports: Back Pain (chronic), Other (chest wall pain aute). Denies: Neck Pain, Shoulder Pain Neurological: Reports: Dizziness, Difficulty Walking (reports a bad left knee). Denies: Syncope, Trouble Speaking, Weakness ED EXAM, GENERAL - Physical Exam Exam: See Below Exam Limited By: No Limitations General Appearance: Alert, WD/WN, No Apparent Distress (No nystagmus) Ears: Normal External Exam Nose: Normal Inspection Throat/Mouth: Normal Inspection, Normal Oropharynx, Normal Voice, No Airway Compromise Head: Atraumatic, Normocephalic Neck: Normal Inspection, Non-Tender, Full Range of Motion. No: Tender Midline Respiratory/Chest: No Respiratory Distress, Lungs Clear, Normal Breath Sounds. No: Rales, Rhonchi, Wheezing, Stridor Cardiovascular: Normal Peripheral Pulses, Regular Rate, Rhythm, No Murmur Peripheral Pulses: 2+: Radial (L), Radial (R) GI/Abdominal: Normal Bowel Sounds, Soft, Non-Tender, No Distention Back Exam: Normal Inspection Extremities: Normal Inspection, Normal Range of Motion, Non-Tender, Pedal Edema (+2), Other (Pelvis stable and nontender) Neurological: Alert, Oriented, CN II-XII Intact, No Motor/Sensory Deficits Skin Exam: Warm, Dry, Intact, Normal Color, No Rash EKG INTERPRETATION EKG Date: 06/05/20 Time: 19:35 Rhythm: NSR Rate (Beats/Min): 92 [place]: Normal P-Wave: Present QRS: Normal ST-T: Normal QT: Normal Comparison: NA - No Prior EKG Course - Vital Signs Last Recorded V/S: Last Vital Signs Temp 100.4 F 06/05/20 19:27 Pulse 97 06/05/20 19:27 Resp 12 06/05/20 20:39 BP 157/88 H 06/05/20 20:39 Pulse Ox 93 L 06/05/20 20:39 - Orders/Labs/Meds Orders: Active Orders 24 hr Category Date Time Status EKG Documentation Completion [RC] ASDIRECTED Care 06/05/20 19:29 Active Chest 2V [CR] Stat Exams 06/05/20 19:26 Taken EKG 12 Lead [EK] Routine Ther 06/05/20 19:29 Ordered Labs: Laboratory Tests 06/05/20 06/05/20 06/05/20 Range/Units 19:36 19:36 19:36 WBC 11.9 H (4.5-11.0) K/uL RBC 5.02 (4.30-5.90) M/uL Hgb 14.4 (12.0-15.0) g/dL Hct 45.5 (40.0-54.0) % MCV 91 (80-98) fL MCH 29 (27-31) pg MCHC 32 (32-36) % Plt Count 302 (150-400) K/uL Neut % (Auto) 89 H (36-66) % Lymph % (Auto) 6 L (24-44) % [place] % (Auto) 5 (2-6) % Eos % (Auto) 0 L (2-4) % Baso % (Auto) 0 (0-1) % PT 10.7 (9.5-12.0) sec INR 0.98 (0.80-1.20) Sodium 138 L (140-148) mmol/L Potassium 3.9 (3.6-5.2) mmol/L Chloride 101 (100-108) mmol/L Carbon Dioxide 26 (21-32) mmol/L Anion Gap 14.9 H (5.0-14.0) mmol/L BUN 16 (7-18) mg/dL Creatinine 1.3 (0.8-1.3) mg/dL Est Cr Clr Drug Dosing 64.99 mL/min Estimated GFR (MDRD) 55 L (>60) Glucose 205 H (74-106) mg/dL Calcium 8.8 (8.5-10.1) mg/dL Total Bilirubin 0.5 (0.2-1.0) mg/dL AST 18 (15-37) U/L ALT 39 (12-78) U/L Alkaline Phosphatase 80 (46-116) U/L Total Protein 6.6 (6.4-8.2) g/dL Albumin 3.5 (3.4-5.0) g/dL Globulin 3.1 (2.3-3.5) g/dL Albumin/Globulin Ratio 1.1 L (1.2-2.2) Lipase 98 (73-393) U/L Urine Color (YELLOW) Urine Appearance (CLEAR) Urine pH (5.0-8.0) Ur Specific [place] (1.008-1.030) Urine Protein (NEGATIVE) mg/dL Urine Glucose (UA) (NEGATIVE) mg/dL Urine Ketones (NEGATIVE) mg/dL Urine Occult Blood (NEGATIVE) Urine Nitrite (NEGATIVE) Urine Bilirubin (NEGATIVE) Urine Urobilinogen (0.2-1.0) EU/dL Ur Leukocyte Esterase (NEGATIVE) Urine RBC (0-5) Urine WBC (0-5) Ur Epithelial Cells Amorphous Sediment Urine Bacteria Urine Mucus Acetaminophen 0.0 L (10.0-30.0) ug/mL 06/05/20 Range/Units 19:58 WBC (4.5-11.0) K/uL RBC (4.30-5.90) M/uL Hgb (12.0-15.0) g/dL Hct (40.0-54.0) % MCV (80-98) fL MCH (27-31) pg MCHC (32-36) % Plt Count (150-400) K/uL Neut % (Auto) (36-66) % Lymph % (Auto) (24-44) % [place] % (Auto) (2-6) % Eos % (Auto) (2-4) % Baso % (Auto) (0-1) % PT (9.5-12.0) sec INR (0.80-1.20) Sodium (140-148) mmol/L Potassium (3.6-5.2) mmol/L Chloride (100-108) mmol/L Carbon Dioxide (21-32) mmol/L Anion Gap (5.0-14.0) mmol/L BUN (7-18) mg/dL Creatinine (0.8-1.3) mg/dL Est Cr Clr Drug Dosing mL/min Estimated GFR (MDRD) (>60) Glucose (74-106) mg/dL Calcium (8.5-10.1) mg/dL Total Bilirubin (0.2-1.0) mg/dL AST (15-37) U/L ALT (12-78) U/L Alkaline Phosphatase (46-116) U/L Total Protein (6.4-8.2) g/dL Albumin (3.4-5.0) g/dL Globulin (2.3-3.5) g/dL Albumin/Globulin Ratio (1.2-2.2) Lipase (73-393) U/L Urine Color Yellow (YELLOW) Urine Appearance Clear (CLEAR) Urine pH 5.5 (5.0-8.0) Ur Specific [place] >= 1.030 (1.008-1.030) Urine Protein Negative (NEGATIVE) mg/dL Urine Glucose (UA) 100 H (NEGATIVE) mg/dL Urine Ketones Negative (NEGATIVE) mg/dL Urine Occult Blood Negative (NEGATIVE) Urine Nitrite Negative (NEGATIVE) Urine Bilirubin Negative (NEGATIVE) Urine Urobilinogen 0.2 (0.2-1.0) EU/dL Ur Leukocyte Esterase Negative (NEGATIVE) Urine RBC Not seen (0-5) Urine WBC Not seen (0-5) Ur Epithelial Cells Rare Amorphous Sediment Few Urine Bacteria Not seen Urine Mucus Not seen Acetaminophen (10.0-30.0) ug/mL - Radiology Interpretation Free Text/Narrative:: Preliminary Report: INDICATION: Head injury from fall on coumadin TECHNIQUE: CT Head without i.v. contrast. COMPARISON: None FINDINGS: CSF space: Unremarkable for age. Brain: There is a hypodense region present the left parietal lobe measuring 2.2 cm with internal punctate foci hyperdensity. No mass-effect or midline shift is seen. Mild diffuse cortical atrophy is noted. A small focus of encephalomalacia is present within the left frontal lobe. Calvarium: The visualized paranasal sinuses are well aerated. The mastoid air cells are clear. The visualized orbits are grossly unremarkable. The calvarium is unremarkable in appearance with no fractures identified. IMPRESSION: 1. No CT evidence of acute infarction, hemorrhage, or mass-effect seen. 2. There is a hypodense region present the left parietal lobe measuring 2.2 cm with internal punctate foci hyperdensity. This may represent an area of encep halomalacia with dystrophic calcification. Comparison with any prior outside imaging is recommended. If these cannot be obtained, assessment with outpatient MRI is recommended. Dictated by Tesfaye Alvarado MD @ 06/05/2020 8:16:51 PM Chest x-ray 1 view Indication chest wall pain after fall Impression: No pneumothorax. Normal mediastinum and cardiac silhouette. No focal infiltrate or silhouetting. Normal examination. Departure - Departure Time of Disposition: 21:00 Disposition: Refer to Observation Condition: Good Clinical Impression: Frequent falls, Left parietal lobe lesion, Chronic pain - Discharge Information Instructions: Fall Prevention in the Home, Adult, [id number] Referrals: PCP,None [Primary Care Provider] - Forms: ED Department Discharge Additional Instructions: 1. Contact your primary care doctor tomorrow for review and CT comparison of today's study to previous studies. If unable to do so have primary care doctor order outpatient MRI of brain. 2. Use extra precaution at home to avoid falls. Get up slowly from chairs and bed. Drink plenty of water. Avoid climbing ladders or being unsecured in high spaces where you could fall. Avoid going out on the water alone and without a safety vest where if you fell overboard you could drown. 3. Take your medications as directed. Avoid excessive use of pain medications other than by directed parameters. Take your anticoagulation medication as directed. Contact your primary care doctor for refill of medications as needed. 4. Seek immediate medical attention with any rapidly worsening symptoms or concerns. Sepsis Event Note (ED) - Evaluation Sepsis Screening Result: No Definite Risk - Focused Exam Vital Signs: Vital Signs Temp Pulse Resp BP Pulse Ox 06/05/20 20:39 12 157/88 H 93 L 06/05/20 20:09 14 191/99 H 95 06/05/20 19:27 100.4 F 97 12 170/95 H 95 - My Orders Last 24 Hours: My Active Orders 06/05/20 19:26 Chest 2V [CR] Stat 06/05/20 19:29 EKG Documentation Completion [RC] ASDIRECTED EKG 12 Lead [EK] Routine - Assessment/Plan Last 24 Hours: My Active Orders 06/05/20 19:26 Chest 2V [CR] Stat 06/05/20 19:29 EKG Documentation Completion [RC] ASDIRECTED EKG 12 Lead [EK] Routine Assessment:: 64-year-old male on chronic pain regimen for chronic pain who has increased his pain regimen acutely due to a recent fall with left chest wall pain. Since that time he reports several additional falls. No evidence of serious injury secondary to these falls on clinical examination and/or diagnostic work-up today. Hemodynamically stable. No evidence of a pneumothorax. No evidence of a subdural hematoma. There is note of a left parietal lesion on preliminary his head CT read today with no comparison study available at this time. This is not an acute hemorrhage and can be further worked up in the outpatient setting. I advised patient of the finding and recommended that he discuss with his primary care doctor tomorrow for comparison studies on old CTs as he has had these done. Advised him to get an MRI on his head in the outpatient setting if unable to obtain comparative CT. This finding is not likely the cause of patient's frequent falls today. His diagnostic labs are reviewed and with normal limits with no explanation for increased and/or frequent falls. His acetaminophen level is 0. I am concerned about the amount of acetaminophen/hydrocodone the patient took a couple of days ago and counseled him not to use his medications outside of the prescribed parameters due to the potential risk of acetaminophen overdose and toxicity. Patient is noncompliant with his Coumadin and at higher risk for stroke as a result. No evidence of acute stroke at this time requiring thrombolytic therapy at this time. Patient does not require hospitalization. He is medically stable. He is advised to take precautions to avoid falls as much as possible. He is advised to contact his primary care doctor tomorrow for follow-up as recommended. He is advised to seek immediate medical attention with any rapidly worsening symptoms or concerns. He is advised to contact his pain specialist to discuss his recent increased use of pain medications and I advised that he return to his prescribed pain regimen doses. While he does not feel that his increased dizziness is secondary to side effects from the increase in opioid use this remains plausible. Patient did not have additional questions following our discussion and was discharged home medically stable.
--- NOTE | 2020-06-05 20:27 | CRLCT ---
INDICATION: Head injury from fall on coumadin TECHNIQUE: CT Head without i.v. contrast. COMPARISON: None FINDINGS: CSF space: Unremarkable for age. Brain: There is a hypodense region present the left parietal lobe measuring 2.2 cm with internal punctate foci hyperdensity. No mass-effect or midline shift is seen. Mild diffuse cortical atrophy is noted. A small focus of encephalomalacia is present within the left frontal lobe. Calvarium: The visualized paranasal sinuses are well aerated. The mastoid air cells are clear. The visualized orbits are grossly unremarkable. The calvarium is unremarkable in appearance with no fractures identified. IMPRESSION: 1. No CT evidence of acute infarction, hemorrhage, or mass-effect seen. 2. There is a hypodense region present the left parietal lobe measuring 2.2 cm with internal punctate foci hyperdensity. This may represent an area of encephalomalacia with dystrophic calcification. Comparison with any prior outside imaging is recommended. If these cannot be obtained, assessment with outpatient MRI is recommended. Dictated by Tesfaye Alvarado MD @ 06/05/2020 8:16:51 PM Please note that all CT scans at this facility use dose modulation, iterative reconstruction, and/or weight-based dosing when appropriate to reduce radiation dose to as low as reasonably achievable. Dictated by: Tesfaye Alvarado MD @ 06/05/2020 20:25:07 (Electronically Signed)
[2020-06-05 20:39] VITALS: BP 157/88
--- NOTE | 2020-06-06 10:03 | CR ---
CHEST: 2 view CLINICAL HISTORY:Chest pain COMPARISON:05/29/2020 FINDINGS: The heart size, pulmonary vascularity and hilar structures are normal. No infiltrate effusion or pneumothorax is seen. There are atherosclerotic changes in the aorta. IMPRESSION: No acute cardiopulmonary process. No significant change from prior study
== END 2020-06-05 21:47 | disposition home or self-care (01) ==
LOC: JP.ED 18:52
DX: S06.9X0A Unspecified intracranial injury without loss of consciousness, initial encounter (principal); G89.29 Other chronic pain; E78.00 Pure hypercholesterolemia, unspecified; I10 Essential (primary) hypertension; G43.909 Migraine, unspecified, not intractable, without status migrainosus; E03.9 Hypothyroidism, unspecified; Z86.73 Personal history of transient ischemic attack (TIA), and cerebral infarction without residual deficits; Z88.2 Allergy status to sulfonamides; Z88.8 Allergy status to other drugs, medicaments and biological substances; Z79.899 Other long term (current) drug therapy; Z79.82 Long term (current) use of aspirin; W18.30XA Fall on same level, unspecified, initial encounter
CPT/HCPCS: 36415; 70450; 71046; 71046-26; 80053; 80307; 81001; 83690; 85025; 85610; 93005; 93010; 99283; 99285-25

== ENCOUNTER 2020-07-03 19:53 | Observation (INO) | payer MEDICARE, BC ==
[2020-07-03] MEDS ORDERED: Sodium Chloride 0.9% 10 ML Syringe FLUSH PRN (19:59)
[2020-07-03] MEDS ORDERED: Sodium Chloride 0.9% 1,000 ML IV SCH (20:00)
--- NOTE | 2020-07-03 20:08 | EDM.PDOC ---
ED HPI GENERAL MEDICAL PROBLEM - General Chief Complaint: Lower Extremity Injury/Pain Stated Complaint: FELL PAIN IN BOTH LEGS Time Seen by Provider: 07/03/20 19:55 Source of Information: Reports: Patient, Family History Limitations: Reports: No Limitations - History of Present Illness Onset: Sudden Onset Date: 07/03/20 Onset Time: 19:30 Location: Reports: Pelvis, Upper Extremity, Right, Lower Extremity, Left Front/Back Body Image: 1 - tenderness of the proximal femur just below the greater trochanter. 2 - pain / swelling Quality: Reports: Ache, Throbbing Severity: Moderate Improves with: Reports: Immobilization Worsens with: Reports: Medication Context: Reports: Trauma (Patient was walking down his outside steps when he fell after missing a step. He went down 3 steps and then collided with his head striking the back of a closed trailer. Patient denies any loss of consciousness but does have a headache. He is on anticoagulation.) Associated Symptoms: Reports: Headaches. Denies: Confusion, Chest Pain, Diaphoresis, Loss of Appetite, Nausea/Vomiting, Shortness of Breath, Syncope, Weakness Treatments TRAP OPERATOR: Reports: Other Medication(s) Other Treatments TRAP OPERATOR: Interesting his fentanyl patch is not on his medication list versus hydroco Right Leg Pain Score (Numeric/FACES): 9 - Related Data Allergies Allergy/AdvReac Type Severity Reaction Status Date / Time clindamycin Allergy Bradycardia Verified 07/03/20 19:58 Sulfa (Sulfonamide Allergy Lethargy Verified 07/03/20 19:58 Antibiotics) venom-honey bee Allergy Anaphylactic Verified 07/03/20 19:58 [bee venom (honey bee)] Shock Home Meds: Home Meds Albuterol Sulfate [Proair Hfa] 1 puff IH QID PRN 10/16/13 [History] Calcium Carbonate/Vitamin D3 [Calcium 500 + Vit D 200 Tablet] 600 mg PO BID 10/16/13 [History] Cyclobenzaprine [Flexeril] 10 mg PO TID PRN 10/16/13 [History] Fluticasone/Salmeterol [Advair 100-50 Diskus] 1 puff INH BID 10/16/13 [History] Furosemide [Lasix] 20 mg PO ASDIRECTED PRN 10/16/13 [History] Gabapentin 1,500 mg PO TID 10/16/13 [History] Hydrocodone/Acetaminophen [[place] 10-325] 1 tab PO Q4H PRN 10/16/13 [History] Magnesium Amino Acid Chelate [Magnesium] 100 mg PO DAILY 10/16/13 [History] Multivitamin [Men's Multi-Vitamin] 1 each PO DAILY 10/16/13 [History] Propranolol [Inderal LA 24 Hr] 240 mg PO BEDTIME 10/16/13 [History] predniSONE [Prednisone] 20 mg PO DAILY 10/16/13 [History] Warfarin [Coumadin] 3 mg PO ASDIRECTED 11/24/14 [History] Potassium Chloride 10 meq PO DAILY 03/19/18 [History] Aspirin 81 mg PO DAILY 03/24/20 [History] Morphine [MS Contin] 15 mg PO BID 03/24/20 [History] Naloxegol Oxalate [Movantik] 25 mg PO SA 03/24/20 [History] atorvaSTATin [Lipitor] 40 mg PO DAILY 03/24/20 [History] cephALEXin [Keflex] 500 mg PO TID 03/24/20 [History] Ketorolac [Toradol] 10 mg PO Q6H PRN 07/03/20 [History] Promethazine [Phenergan] 25 mg PO Q6H PRN 07/03/20 [History] diphenhydrAMINE [Benadryl] 25 mg PO Q6H PRN 07/03/20 [History] Past Medical History HEENT History: Reports: Impaired Vision Cardiovascular History: Reports: Blood Clots/VTE/DVT, High Cholesterol, Hypert ension Respiratory History: Reports: PE Genitourinary History: Reports: Renal Calculus, Renal Disease Musculoskeletal History: Reports: Back Pain, Chronic Other Musculoskeletal History: Spinal surgeries. Neurological History: Reports: Brain Injury, CVA, Migraines Psychiatric History: Reports: PTSD Endocrine/Metabolic History: Reports: Hypothyroidism, Other (See Below) Other Endocrine/Metabolic History: wagners granulomatosis Immunologic History: Reports: Immunosuppression - Past Surgical History Head Surgeries/Procedures: Reports: None Neurological Surgical History: Reports: Spinal Fusion Musculoskeletal Surgical History: Reports: Knee Replacement Social & Family History - Caffeine Use Caffeine Use: Reports: Soda Review of Systems - Review of Systems Review Of Systems: Comprehensive ROS is negative, except as noted in HPI. Constitutional: Reports: No Symptoms Eyes: Reports: No Symptoms Ears: Reports: No Symptoms Nose: Reports: No Symptoms Mouth/Throat: Reports: No Symptoms Respiratory: Reports: No Symptoms Cardiovascular: Reports: No Symptoms GI/Abdominal: Reports: No Symptoms Genitourinary: Reports: No Symptoms Musculoskeletal: Reports: Joint Pain (Right hip pain, left ankle pain), Joint Swelling (Left ankle swelling) Skin: Reports: Wound (Superficial laceration left knee) Neurological: Reports: Headache Psychiatric: Reports: No Symptoms ED EXAM, GENERAL - Physical Exam Exam: See Below Exam Limited By: No Limitations General Appearance: Alert, Moderate Distress Eye Exam: Bilateral Eye: EOMI, PERRL Ears: Normal External Exam Nose: Normal Inspection, Normal Mucosa, No Blood Throat/Mouth: Normal Inspection, Normal Lips, Normal Teeth, Normal Gums, Normal Oropharynx, Normal Voice, No Airway Compromise Head: Normocephalic. No: Facial Swelling, Facial Tenderness, Sinus Tenderness Neck: Normal Inspection, Supple, Non-Tender, Full Range of Motion Respiratory/Chest: No Respiratory Distress, Lungs Clear, Normal Breath Sounds, No Accessory Muscle Use, Chest Non-Tender Cardiovascular: Normal Peripheral Pulses, Regular Rate, Rhythm, No Edema, No Gallop, No JVD, No Murmur, No Rub Peripheral Pulses: 2+: Radial (L), Radial (R), Popliteal (L), Popliteal (R), Posterior Tibial (L), Posterior Tibial (R), Dorsalis Pedis (L), Dorsalis Pedis (R) GI/Abdominal: Normal Bowel Sounds, Soft, Non-Tender, No Organomegaly, No Distention, No Abnormal Bruit, No Mass, Pelvis Stable Back Exam: Normal Inspection, Full Range of Motion Extremities: No Pedal Edema, Joint Swelling (Ankle swelling and pain with movement. Pain with palpation over the lateral malleolus.), Other (Pain with palpation over the posterior proximal femur just below the greater trochanter. Patient denies any numbness or tingling. There is no significant ecchymosis although the hamstring and quadricep do appear to be somewhat tender especially with movement.) Neurological: Alert, Oriented, Normal Cognition, No Motor/Sensory Deficits, Abnormal Gait (Patient has difficulty applying weight to the left lower extremity and has significant pain with weightbearing on the right proximal lower extremity. The foot appears to be internally rotated on the right.). No: Normal Gait, Sensory/Motor Deficit Skin Exam: Warm, Normal Color, Wound/Incision (Deep abrasion over the left k nee.). No: Ecchymosis Course - Vital Signs Last Recorded V/S: Last Vital Signs Temp 36.4 C 07/03/20 20:09 Pulse 56 L 07/03/20 21:23 Resp 16 07/03/20 20:24 BP 149/73 H 07/03/20 21:23 Pulse Ox 96 07/03/20 21:23 - Orders/Labs/Meds Orders: Active Orders 24 hr Category Date Time Status Peripheral IV Care [RC] . DIRECTED Care 07/03/20 20:02 Active Splinting [RC] ASDIRECTED Care 07/03/20 21:46 Active Ankle Min 3V Lt [CR] Stat Exams 07/03/20 19:59 Taken Femur Min 2V Rt [CR] Stat Exams 07/03/20 21:11 Taken HYDROmorphone [Dilaudid] Med 07/03/20 19:59 Active 0.5 mg IVPUSH Q1H PRN Piperacillin/Tazobactam [Zosyn] 3.375 gm Med 07/03/20 20:15 Active Sodium Chloride 0.9% [Normal Saline] 50 ml IV ONETIME Sodium Chloride 0.9% [Normal Saline] 1,000 ml Med 07/03/20 20:00 Active IV ASDIRECTED Sodium Chloride 0.9% [Saline Flush] Med 07/03/20 19:59 Active 10 ml FLUSH ASDIRECTED PRN Peripheral IV Insertion Adult [OM.PC] Routine Oth 07/03/20 19:59 Ordered Medication Orders Hydromorphone HCl (Dilaudid) 0.5 mg IVPUSH Q1H PRN PRN Reason: Pain (moderate 4-6) Last Admin: 07/03/20 21:58 Dose: 0.5 mg Documented by: Admin: 07/03/20 20:10 Dose: 0.5 mg Documented by: ROSSI Sodium Chloride (Normal Saline) 1,000 mls @ 125 mls/hr IV ASDIRECTED NANCY Last Admin: 07/03/20 20:11 Dose: 125 mls/hr Documented by: ROSSI Piperacillin Sod/Tazobactam (Sod 3.375 gm/ Sodium Chloride) 50 mls @ 100 mls/hr IV ONETIME NANCY Last Admin: 07/03/20 21:01 Dose: 100 mls/hr Documented by: ROSSI Sodium Chloride (Saline Flush) 10 ml FLUSH ASDIRECTED PRN PRN Reason: Keep Vein Open Labs: Laboratory Tests 07/03/20 07/03/20 07/03/20 Range/Units 20:12 20:12 20:12 WBC 9.6 (4.5-11.0) K/uL RBC 4.49 (4.30-5.90) M/uL Hgb 13.2 (12.0-15.0) g/dL Hct 41.1 (40.0-54.0) % MCV 92 (80-98) fL MCH 29 (27-31) pg MCHC 32 (32-36) % Plt Count 287 (150-400) K/uL Neut % (Auto) 67 H (36-66) % Lymph % (Auto) 21 L (24-44) % Swisher % (Auto) 12 H (2-6) % Eos % (Auto) 0 L (2-4) % Baso % (Auto) 0 (0-1) % PT 15.0 H (9.5-12.0) sec INR 1.38 H (0.80-1.20) APTT 27.9 (27.0-36.0) sec Sodium 144 (140-148) mmol/L Potassium 4.2 (3.6-5.2) mmol/L Chloride 111 H (100-108) mmol/L Carbon Dioxide 22 (21-32) mmol/L Anion Gap 15.2 H (5.0-14.0) mmol/L BUN 16 (7-18) mg/dL Creatinine 1.2 (0.8-1.3) mg/dL Est Cr Clr Drug Dosing TNP Estimated GFR (MDRD) > 60 (>60) Glucose 135 H (74-106) mg/dL Calcium 8.6 (8.5-10.1) mg/dL Total Bilirubin 0.5 (0.2-1.0) mg/dL AST 22 (15-37) U/L ALT 36 (12-78) U/L Alkaline Phosphatase 78 (46-116) U/L Total Protein 5.9 L (6.4-8.2) g/dL Albumin 3.2 L (3.4-5.0) g/dL Globulin 2.7 (2.3-3.5) g/dL Albumin/Globulin Ratio 1.2 (1.2-2.2) Meds: Medications Generic Name Dose Route Start Last Admin Trade Name Freq PRN Reason Stop Dose Admin Hydromorphone HCl 0.5 mg 07/03/20 19:59 07/03/20 21:58 Dilaudid IVPUSH 0.5 mg Q1H PRN Administration Pain (moderate 4-6) Sodium Chloride 1,000 mls @ 125 mls/hr 07/03/20 20:00 07/03/20 20:11 Normal Saline IV 125 mls/hr ASDIRECTED NANCY Administration Piperacillin Sod/Tazobactam 50 mls @ 100 mls/hr 07/03/20 20:15 07/03/20 21:01 Sod 3.375 gm/ Sodium Chloride IV 100 mls/hr ONETIME NANCY Administration Sodium Chloride 10 ml 07/03/20 19:59 Saline Flush FLUSH ASDIRECTED PRN Keep Vein Open Discontinued Medications Generic Name Dose Route Start Last Admin Trade Name Freq PRN Reason Stop Dose Admin Hydromorphone HCl 0.5 mg 07/03/20 20:26 07/03/20 20:33 Dilaudid IVPUSH 07/03/20 20:27 0.5 mg ONETIME ONE Administration - Re-Assessments/Exams Free Text/Narrative Re-Assessment/Exam: 07/03/20 22:28 After the splint was applied to the left ankle, we had the patient try to ambulate with the use of a walker. He was having difficulty with ambulating only able to take a few steps without significant discomfort. We will admit him at this time for pain control and have physical therapy occupational therapy assess him in the morning and establish plan. He can follow-up with orthopedics as an outpatient for his comminuted fracture of the distal fibula. Departure - Departure Time of Disposition: 22:53 Disposition: Refer to Observation Condition: Fair Clinical Impression: Abrasion, left knee, initial encounter, Acute right hip pain, Fracture of fibula Fall down stairs Qualifiers: Encounter type: initial encounter Qualified Code(s): W10.8XXA - Fall (on) (from) other stairs and steps, initial encounter Closed head injury Qualifiers: Encounter type: initial encounter Qualified Code(s): S09.90XA - Unspecified injury of head, initial encounter - Discharge Information *PRESCRIPTION DRUG MONITORING PROGRAM REVIEWED*: Not Applicable *COPY OF PRESCRIPTION DRUG MONITORING REPORT IN PATIENT ROSA: Not Applicable Referrals: PCP,None [Primary Care Provider] - Forms: ED Department Discharge Sepsis Event Note (ED) - Focused Exam Vital Signs: Vital Signs Temp Pulse Resp BP Pulse Ox 07/03/20 21:23 56 L 149/73 H 96 07/03/20 21:17 55 L 167/68 H 93 L 07/03/20 20:24 57 L 16 165/118 H 93 L 07/03/20 20:09 36.4 C 61 16 186/84 H 97 - Problem List & Annotations (1) Abrasion, left knee, initial encounter SNOMED Code(s): 32467811418236240 Code(s): S80.212A - ABRASION, LEFT KNEE, INITIAL ENCOUNTER Status: Acute Priority: Low Current Visit: Yes (2) Acute right hip pain SNOMED Code(s): 07848058, 678486281 Code(s): M25.551 - PAIN IN RIGHT HIP Status: Acute Priority: Medium Current Visit: Yes (3) Closed head injury SNOMED Code(s): 103942841193 Code(s): S09.90XA - UNSPECIFIED INJURY OF HEAD, INITIAL ENCOUNTER Status: Acute Priority: Medium Current Visit: Yes Qualifiers: Encounter type: initial encounter Qualified Code(s): S09.90XA - Unspecified injury of head, initial encounter (4) Fall down stairs SNOMED Code(s): 915604628 Code(s): W10.8XXA - FALL (ON) (FROM) OTHER STAIRS AND STEPS, INITIAL ENCOUNTER Status: Acute Priority: Medium Current Visit: Yes Qualifiers: Encounter type: initial encounter Qualified Code(s): W10.8XXA - Fall (on) (from) other stairs and steps, initial encounter (5) Fracture of fibula SNOMED Code(s): 30460566 Code(s): S82.409A - UNSP FRACTURE OF SHAFT OF UNSP FIBULA, INIT FOR CLOS FX Status: Acute Priority: Medium Current Visit: Yes Annotation/Comment:: Comminuted fracture of the distal fibula without widening of the mortise. - My Orders Last 24 Hours: My Active Orders 07/03/20 19:59 Ankle Min 3V Lt [CR] Stat HYDROmorphone [Dilaudid] 0.5 mg IVPUSH Q1H PRN Sodium Chloride 0.9% [Saline Flush] 10 ml FLUSH ASDIRECTED PRN Peripheral IV Insertion Adult [OM.PC] Routine 07/03/20 20:00 Sodium Chloride 0.9% [Normal Saline] 1,000 ml IV ASDIRECTED 07/03/20 20:02 Peripheral IV Care [RC] . DIRECTED 07/03/20 20:15 Piperacillin/Tazobactam [Zosyn] 3.375 gm Sodium Chloride 0.9% [Normal Saline] 50 ml IV ONETIME 07/03/20 21:11 Femur Min 2V Rt [CR] Stat 07/03/20 21:46 Splinting [RC] ASDIRECTED - Assessment/Plan Last 24 Hours: My Active Orders 07/03/20 19:59 Ankle Min 3V Lt [CR] Stat HYDROmorphone [Dilaudid] 0.5 mg IVPUSH Q1H PRN Sodium Chloride 0.9% [Saline Flush] 10 ml FLUSH ASDIRECTED PRN Peripheral IV Insertion Adult [OM.PC] Routine 07/03/20 20:00 Sodium Chloride 0.9% [Normal Saline] 1,000 ml IV ASDIRECTED 07/03/20 20:02 Peripheral IV Care [RC] . DIRECTED 07/03/20 20:15 Piperacillin/Tazobactam [Zosyn] 3.375 gm Sodium Chloride 0.9% [Normal Saline] 50 ml IV ONETIME 07/03/20 21:11 Femur Min 2V Rt [CR] Stat 07/03/20 21:46 Splinting [RC] ASDIRECTED
[2020-07-03] MEDS: HYDROmorphone 0.5 MG/0.5 ML Syringe IVPUSH PRN ×4 (20:10→23:26)
[2020-07-03] MEDS ORDERED: Piperacillin/Tazobactam 3.375 GM in Sodium Chloride 0.9% 50 ML IV SCH (20:15)
[2020-07-03] MEDS ORDERED: HYDROmorphone 0.5 MG/0.5 ML Syringe IVPUSH ONE (20:26)
--- NOTE | 2020-07-03 21:15 | CRLCT ---
INDICATION: Fall, head injury. Patient on anticoagulation. TECHNIQUE: CT head without contrast. COMPARISON: Head CT 06/05/2020 FINDINGS: CSF spaces: Within normal limits for age. Brain parenchyma: Left parietal encephalomalacia with calcification at the margin as well as left frontal encephalomalacia. Appearance favors old infarctions. No intracranial bleed or mass effect. Skull base and calvarium: The visualized paranasal sinuses and mastoid air cells demonstrate no acute or significant findings. The visualized orbits are grossly unremarkable. No skull fractures. Atherosclerosis. IMPRESSION: 1. No intracranial bleed or mass effect 2. 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 Please note that all CT scans at this facility use dose modulation, iterative reconstruction, and/or weight-based dosing when appropriate to reduce radiation dose to as low as reasonably achievable. Dictated by Mayur Delarosa MD @ Jul 03 2020 9:10PM Signed by Dr. Mayur Delarosa @ Jul 03 2020 9:14PM
--- NOTE | 2020-07-03 21:26 | CRLCR ---
Indication: Fall, right hip pain Technique: Three views Comparison: None Findings: Bones: Some lucency at the medial aspect of the base of the greater trochanter on the AP view only which is not well seen on other images. This is felt to more likely be soft tissue artifact, however CT scan would have improved characterization of this area. Joint spaces: No dislocation. No significant degenerative changes. Soft tissues: Unremarkable. Dictated by Mayur Delarosa MD @ Jul 03 2020 9:10PM Signed by Dr. Mayur Delarosa @ Jul 03 2020 9:25PM
[2020-07-03] MEDS ORDERED: Albuterol 0.083% 2.5 MG/3 ML Neb Soln NEB PRN (23:34)
[2020-07-03] MEDS ORDERED: Bisacodyl 5 MG Tab PO PRN (23:34)
[2020-07-03] MEDS ORDERED: Ondansetron 4 MG Tab.DIS PO PRN (23:34)
[2020-07-03] MEDS ORDERED: Albuterol/Ipratropium 3.0-0.5 MG/3 ML Neb Soln NEB PRN (23:34)
[2020-07-03] MEDS ORDERED: Docusate Sodium 100 MG Cap PO PRN (23:34)
[2020-07-03] MEDS ORDERED: LORazepam 2 MG/ML SDV IV PRN (23:34)
[2020-07-03] MEDS ORDERED: Ondansetron 4 MG/2 ML SDV IV PRN (23:34)
[2020-07-03] MEDS ORDERED: Furosemide 20 MG Tab PO PRN (23:42)
--- NOTE | 2020-07-04 00:02 | PCM.HP.2 ---
H&P History of Present Illness - General Date of Service: 07/03/20 Admit Problem/Dx: Admission Diagnosis/Problem Admission Diagnosis/Problem Fracture of distal end of fibula Source of Information: Patient History Limitations: Reports: No Limitations - History of Present Illness Initial Comments - Free Text/Narative: chief complaint: left ankle fracture Context: Reports: Trauma (Patient was walking down his outside steps when he fell after missing a step. He went down 3 steps and then collided with his head striking the back of a closed trailer. Patient denies any loss of consciousness but does have a headache. He is on anticoagulation.) ER course: After the splint was applied to the left ankle, we had the patient try to ambulate with the use of a walker. He was having difficulty with ambulating only able to take a few steps without significant discomfort. We will admit him at this time for pain control and have physical therapy occupational therapy assess him in the morning and establish plan. He can follow-up with orthopedics as an outpatient for his comminuted fracture of the distal fibula. Onset of Symptoms: Reports: Today Duration of Symptoms: Reports: Hour(s): Location: Reports: Lower Extremity, Left, Other (right upper femur-hip) Right Leg Pain Score (Numeric/FACES): 9 - Related Data Allergies/Adverse Reactions: Allergies Allergy/AdvReac Type Severity Reaction Status Date / Time clindamycin Allergy Bradycardia Verified 07/03/20 19:58 Sulfa (Sulfonamide Allergy Lethargy Verified 07/03/20 19:58 Antibiotics) venom-honey bee Allergy Anaphylactic Verified 07/03/20 19:58 [bee venom (honey bee)] Shock Home Medications: Home Meds Albuterol Sulfate [Proair Hfa] 1 puff IH QID PRN 10/16/13 [History] Calcium Carbonate/Vitamin D3 [Calcium 500 + Vit D 200 Tablet] 600 mg PO BID 10/16/13 [History] Cyclobenzaprine [Flexeril] 10 mg PO TID PRN 10/16/13 [History] Fluticasone/Salmeterol [Advair 100-50 Diskus] 1 puff INH BID 10/16/13 [History] Furosemide [Lasix] 20 mg PO ASDIRECTED PRN 10/16/13 [History] Gabapentin 1,500 mg PO TID 10/16/13 [History] Hydrocodone/Acetaminophen [[place]ora 10-325] 1 tab PO Q4H PRN 10/16/13 [History] Magnesium Amino Acid Chelate [Magnesium] 100 mg PO DAILY 10/16/13 [History] Multivitamin [Men's Multi-Vitamin] 1 each PO DAILY 10/16/13 [History] Propranolol [Inderal LA 24 Hr] 240 mg PO BEDTIME 10/16/13 [History] predniSONE [Prednisone] 20 mg PO DAILY 10/16/13 [History] Warfarin [Coumadin] 3 mg PO ASDIRECTED 11/24/14 [History] Potassium Chloride 10 meq PO DAILY 03/19/18 [History] Aspirin 81 mg PO DAILY 03/24/20 [History] Morphine [MS Contin] 15 mg PO BID 03/24/20 [History] Naloxegol Oxalate [Movantik] 25 mg PO SA 03/24/20 [History] atorvaSTATin [Lipitor] 40 mg PO DAILY 03/24/20 [History] cephALEXin [Keflex] 500 mg PO TID 03/24/20 [History] Ketorolac [Toradol] 10 mg PO Q6H PRN 07/03/20 [History] Promethazine [Phenergan] 25 mg PO Q6H PRN 07/03/20 [History] diphenhydrAMINE [Benadryl] 25 mg PO Q6H PRN 07/03/20 [History] Past Medical History HEENT History: Reports: Impaired Vision Cardiovascular History: Reports: Blood Clots/VTE/DVT, High Cholesterol, Hypertension Respiratory History: Reports: PE Genitourinary History: Reports: Renal Calculus, Renal Disease Other Genitourinary History: CKD 3 Musculoskeletal History: Reports: Back Pain, Chronic Other Musculoskeletal History: Spinal surgeries. Neurological History: Reports: Brain Injury, CVA, Migraines Psychiatric History: Reports: PTSD Endocrine/Metabolic History: Reports: Hypothyroidism, Other (See Below) Other Endocrine/Metabolic History: wagners granulomatosis Hematologic History: Reports: Anticoagulation Therapy Immunologic History: Reports: Immunosuppression Dermatologic History: Reports: Cellulitis - Infectious Disease History Infectious Disease History: Reports: Chicken Pox - Past Surgical History Head Surgeries/Procedures: Reports: None Neurological Surgical History: Reports: Spinal Fusion Musculoskeletal Surgical History: Reports: Knee Replacement Social & Family History - Family History Family Medical History: Noncontributory - Tobacco Use Tobacco Use Status *Q: Never Tobacco User - Caffeine Use Caffeine Use: Reports: Soda - Recreational Drug Use Recreational Drug Use: No - Living Situation & Occupation Living situation: Reports: (moving to [place] from home on [address] H&P Review of Systems - Review of Systems: Review Of Systems: See Below General: Reports: Other (pain from fracture left ankle and right upper leg and hip) HEENT: Reports: Glasses Pulmonary: Reports: No Symptoms, Other (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 finger tips with clubbing.) Psychiatric: Reports: No Symptoms Neurological: Reports: Pre-Existing Deficit (hx of several strokes June 2019) Hematologic/Lymphatic: Reports: Anemia (Coumadin daily for history of pulmonary PE ) Immunologic: Reports: No Symptoms Exam - Exam Exam: See Below - Vital Signs Vital Signs: Last Vital Signs Temp 36.4 C 07/03/20 20:09 Pulse 54 L 07/03/20 22:31 Resp 22 H 07/03/20 22:31 BP 185/78 H 07/03/20 22:31 Pulse Ox 97 07/03/20 22:31 Weight: 104.326 kg - Exam Quality Assessment: DVT Prophylaxis General: Alert, Oriented, Cooperative, Mild Distress HEENT: PERRLA, Conjunctiva Clear, Glasses Neck: Supple, Trachea Midline, +2 Carotid Pulse wo Bruit Lungs: Clear to Auscultation, Normal Respiratory Effort Cardiovascular: Regular Rate, Regular Rhythm, Normal S1, Normal S2 GI/Abdominal Exam: Normal Bowel Sounds, Soft, Non-Tender, No Organomegaly (Male) Exam: Deferred Rectal (Males) Exam: Deferred Back Exam: Normal Inspection, Full Range of Motion Extremities: Normal Capillary Refill, Leg Pain, Other (left lower leg in splint) Skin: Warm, Dry, Wound (to left knee from fall) Neurological: Normal Speech, Normal Tone Neuro Extensive - Mental Status: Alert, Oriented x3, Normal Mood/Affect, Normal Cognition, Memory Intact Psychiatric: Alert, Normal Affect, Normal Mood - Patient Data Lab Results Last 24 hrs: Laboratory Results - last 24 hr 07/03/20 07/03/20 07/03/20 Range/Units 20:12 20:12 20:12 WBC 9.6 (4.5-11.0) K/uL RBC 4.49 (4.30-5.90) M/uL Hgb 13.2 (12.0-15.0) g/dL Hct 41.1 (40.0-54.0) % MCV 92 (80-98) fL MCH 29 (27-31) pg MCHC 32 (32-36) % Plt Count 287 (150-400) K/uL Neut % (Auto) 67 H (36-66) % Lymph % (Auto) 21 L (24-44) % [place] % (Auto) 12 H (2-6) % Eos % (Auto) 0 L (2-4) % Baso % (Auto) 0 (0-1) % PT 15.0 H (9.5-12.0) sec INR 1.38 H (0.80-1.20) APTT 27.9 (27.0-36.0) sec Sodium 144 (140-148) mmol/L Potassium 4.2 (3.6-5.2) mmol/L Chloride 111 H (100-108) mmol/L Carbon Dioxide 22 (21-32) mmol/L Anion Gap 15.2 H (5.0-14.0) mmol/L BUN 16 (7-18) mg/dL Creatinine 1.2 (0.8-1.3) mg/dL Est Cr Clr Drug Dosing TNP Estimated GFR (MDRD) > 60 (>60) Glucose 135 H (74-106) mg/dL Calcium 8.6 (8.5-10.1) mg/dL Total Bilirubin 0.5 (0.2-1.0) mg/dL AST 22 (15-37) U/L ALT 36 (12-78) U/L Alkaline Phosphatase 78 (46-116) U/L Total Protein 5.9 L (6.4-8.2) g/dL Albumin 3.2 L (3.4-5.0) g/dL Globulin 2.7 (2.3-3.5) g/dL Albumin/Globulin Ratio 1.2 (1.2-2.2) Result Diagrams: 07/03/20 20:12 07/03/20 20:12 Sepsis Event Note - Evaluation Sepsis Screening Result: No Definite Risk - Focused Exam Vital Signs: Vital Signs Temp Pulse Resp BP Pulse Ox 07/03/20 22:31 54 L 22 H 185/78 H 97 07/03/20 21:23 56 L 149/73 H 96 07/03/20 21:17 55 L 167/68 H 93 L 07/03/20 20:24 57 L 16 165/118 H 93 L 07/03/20 20:09 36.4 C 61 16 186/84 H 97 - Problem List (1) Fall down stairs SNOMED Code(s): 927067692 ICD Code: W10.8XXA - FALL (ON) (FROM) OTHER STAIRS AND STEPS, INITIAL ENCOUNTER Status: Acute Priority: Medium Current Visit: Yes Qualifiers: Encounter type: initial encounter Qualified Code(s): W10.8XXA - Fall (on) (from) other stairs and steps, initial encounter (2) Fracture of fibula SNOMED Code(s): 91805190 ICD Code: S82.409A - UNSP FRACTURE OF SHAFT OF UNSP FIBULA, INIT FOR CLOS FX Status: Acute Priority: High Current Visit: Yes Problem Details: Comminuted fracture of the distal fibula without widening of the mortise. (3) History of pulmonary embolism SNOMED Code(s): 157115826 ICD Code: Z86.711 - PERSONAL HISTORY OF PULMONARY EMBOLISM Status: Acute Priority: Medium Current Visit: Yes (4) Abrasion, left knee, initial encounter SNOMED Code(s): 61323176267525803 ICD Code: S80.212A - ABRASION, LEFT KNEE, INITIAL ENCOUNTER Status: Acute Priority: Medium Current Visit: Yes (5) Acute right hip pain SNOMED Code(s): 47654838, 334083907 ICD Code: M25.551 - PAIN IN RIGHT HIP Status: Acute Priority: Medium Current Visit: Yes (6) Chronic anticoagulation SNOMED Code(s): 586426548 ICD Code: Z79.01 - PENITENTIARY (CURRENT) USE OF ANTICOAGULANTS Status: Acute Priority: Low Current Visit: Yes Problem List Initiated/Reviewed/Updated: Yes Orders Last 24hrs: Active Orders 24 hr Category Date Time Status Patient Status Manage Transfer [TRANSFER] Routine ADT 07/03/20 23:32 Active Intake and Output [RC] QSHIFT Care 07/03/20 23:35 Active Notify Provider Consults [RC] ASDIRECTED Care 07/03/20 23:42 Active Notify Provider Vital Signs [RC] ASDIRECTED Care 07/03/20 23:35 Active Oxygen Therapy [RC] PRN Care 07/03/20 23:35 Active Peripheral IV Care [RC] . DIRECTED Care 07/03/20 20:02 Active Pulse Oximetry [RC] CONTINUOUS Care 07/03/20 23:35 Active RT Aerosol Therapy [RC] ASDIRECTED Care 07/03/20 23:38 Active Splinting [RC] ASDIRECTED Care 07/03/20 21:46 Active Up With Assistance [RC] ASDIRECTED Care 07/03/20 23:34 Active VTE/DVT Education [RC] Per Unit Routine Care 07/03/20 23:35 Active Vital Signs [RC] Q4H Care 07/03/20 23:35 Active Consult to Physician [CONS] Routine Cons 07/03/20 23:34 Ordered OT Evaluation and Treatment [CONS] Routine Cons 07/03/20 23:34 Active PT Evaluation and Treatment [CONS] Routine Cons 07/03/20 23:34 Active Regular Diet [DIET] Diet 07/03/20 Breakfast Active Ankle Min 3V Lt [CR] Stat Exams 07/03/20 19:59 Taken Femur Min 2V Rt [CR] Stat Exams 07/03/20 21:11 Taken INR,PT,PROTHROMBIN TIME [COAG] AM Lab 07/04/20 05:11 Ordered Albuterol Sulfate [Proair Hfa] Med 07/03/20 23:42 Ordered 1 puff IH QID PRN Albuterol [Proventil Neb Soln] Med 07/03/20 23:34 Active 2.5 mg NEB Q4H PRN Albuterol/Ipratropium [DuoNeb 3.0-0.5 MG/3 ML] Med 07/03/20 23:34 Active 3 ml NEB QID PRN Cyclobenzaprine [Flexeril] Med 07/03/20 23:42 Ordered 10 mg PO TID PRN Docusate Sodium [Colace] Med 07/03/20 23:34 Active 100 mg PO BID PRN Fluticasone/Salmeterol [Advair 100-50] Med 07/04/20 09:00 Ordered 1 puff INH BID Furosemide [Lasix] Med 07/03/20 23:42 Ordered 20 mg PO ASDIRECTED PRN Gabapentin [Neurontin] Med 07/04/20 09:00 Ordered 1,500 mg PO TID HYDROmorphone [Dilaudid] Med 07/03/20 19:59 Active 0.5 mg IVPUSH Q1H PRN HYDROmorphone [Dilaudid] Med 07/03/20 23:49 Active 1 mg IVPUSH Q4H PRN LORazepam [Ativan] Med 07/03/20 23:34 Active 1 mg IV Q6H PRN Naloxegol Oxalate [Movantik] Med 07/06/20 23:42 Ordered 25 mg PO SA Ondansetron [Zofran ODT] Med 07/03/20 23:34 Ordered 4 mg PO Q6H PRN Ondansetron [Zofran] Med 07/03/20 23:34 Ordered 4 mg IV Q4H PRN Piperacillin/Tazobactam [Zosyn] 3.375 gm Med 07/03/20 20:15 Active Sodium Chloride 0.9% [Normal Saline] 50 ml IV ONETIME Potassium Chloride Med 07/04/20 09:00 Ordered 10 meq PO DAILY Propranolol [Inderal LA] Med 07/04/20 21:00 Ordered 240 mg PO BEDTIME Sodium Chloride 0.9% [Normal Saline] 1,000 ml Med 07/03/20 20:00 Active IV ASDIRECTED Sodium Chloride 0.9% [Normal Saline] 1,000 ml Med 07/03/20 23:45 Ordered IV ASDIRECTED Sodium Chloride 0.9% [Saline Flush] Med 07/03/20 19:59 Active 10 ml FLUSH ASDIRECTED PRN Warfarin [Coumadin] Med 07/03/20 23:45 Ordered 3 mg PO ASDIRECTED bisacodyL [Dulcolax] Med 07/03/20 23:34 Active 5 mg PO DAILY PRN cephALEXin [Keflex] Med 07/04/20 09:00 Ordered 500 mg PO TID predniSONE Med 07/04/20 09:00 Ordered 20 mg PO DAILY Peripheral IV Insertion Adult [OM.PC] Routine Oth 07/03/20 19:59 Ordered Resuscitation Status Routine Resus Stat 07/03/20 23:34 Ordered Medication Orders Albuterol (Proventil Neb Soln) 2.5 mg NEB Q4H PRN PRN Reason: Shortness Of Breath/wheezing Albuterol/Ipratropium (Duoneb 3.0-0.5 Mg/3 Ml) 3 ml NEB QID PRN PRN Reason: Shortness Of Breath/wheezing Bisacodyl (Dulcolax) 5 mg PO DAILY PRN PRN Reason: Constipation Cephalexin (Keflex) 500 mg PO TID NANCY Cyclobenzaprine HCl (Flexeril) 10 mg PO TID PRN PRN Reason: Spasms Docusate Sodium (Colace) 100 mg PO BID PRN PRN Reason: Constipation Furosemide (Lasix) 20 mg PO ASDIRECTED PRN PRN Reason: Edema Gabapentin (Neurontin) 1,500 mg PO TID [facility] Hydromorphone HCl (Dilaudid) 0.5 mg IVPUSH Q1H PRN PRN Reason: Pain (moderate 4-6) Last Admin: 07/03/20 23:26 Dose: 0.5 mg Documented by: Admin: 07/03/20 21:58 Dose: 0.5 mg Documented by: Admin: 07/03/20 20:10 Dose: 0.5 mg Documented by: ROSSI Hydromorphone HCl (Dilaudid) 1 mg IVPUSH Q4H PRN PRN Reason: Pain (severe 7-10) Sodium Chloride (Normal Saline) 1,000 mls @ 125 mls/hr IV ASDIRECTED [facility] Last Admin: 07/03/20 20:11 Dose: 125 mls/hr Documented by: ROSSI Piperacillin Sod/Tazobactam (Sod 3.375 gm/ Sodium Chloride) 50 mls @ 100 mls/hr IV ONETIME [facility] Last Admin: 07/03/20 21:01 Dose: 100 mls/hr Documented by: ROSSI Sodium Chloride (Normal Saline) 1,000 mls @ 125 mls/hr IV ASDIRECTED [facility] Lorazepam (Ativan) 1 mg IV Q6H PRN PRN Reason: Nausea/Vomiting Naloxegol (Movantik) 25 mg PO SA [facility] Non-Formulary Medication (Albuterol Sulfate [Proair Hfa]) 1 puff IH QID PRN PRN Reason: Shortness of Breath Non-Formulary Medication (Fluticasone/Salmeterol [Advair 100-50]) 1 puff INH BID [facility] Non-Formulary Medication (Warfarin [Coumadin]) 3 mg PO ASDIRECTED NANCY Ondansetron HCl (Zofran Odt) 4 mg PO Q6H PRN PRN Reason: Nausea able to take PO Ondansetron HCl (Zofran) 4 mg IV Q4H PRN PRN Reason: Nausea/Vomiting Potassium Chloride (Potassium Chloride) 10 meq PO DAILY NANCY Prednisone (Prednisone) 20 mg PO DAILY NANCY Propranolol HCl (Inderal La) 240 mg PO BEDTIME NANCY Sodium Chloride (Saline Flush) 10 ml FLUSH ASDIRECTED PRN PRN Reason: Keep Vein Open Assessment/Plan Comment:: Assessment/Plan Comment:: Fracture of distal fibula ASSESSMENT AND PLAN This is a 64 year old male who was moving out of his home, slipped on the stairs, fell and injuries to head, right upper leg and hip and left ankle. He was seen in ER had a Head CT which was negative for acute process, right hip and femur negative for acute bony injury, and left distal fibula fracture was noted. He tried to ambulate but was unable due to right leg pain and left fracture ankle. plan to admit to Observation for pain control and consults to OT, PT and Orthopedics. Fracture of commuted left distal fibula- history of prior fracture February. Fall at home, contusion of right hip, closed head injury. -IV fluids Normal Saline 125ml/hr -IV Dilaudid 1 mg every 4 hours as needed for pain -pulse ox -PO pain medication. -consult to OT, PT -consult Orthopedics- Abhay Munoz can see tomorrow in Clinic or next Wednesday or . CHRONIC ANTICOAGULATION-INR subtherapeutic INR 1.38. report history of pulmonary embolism -continue outpatient medication -continue warfarin daily -Reassess INR in a.m. CORONARY ARTERY DISEASE-currently asymptomatic -continue outpatient medication MAINTENANCE ISSUES -DVT prophylaxis; current therapy with warfarin should provide adequate DVT prophylaxis -GI prophylaxis; continue outpatient PPI therapy -Villa catheter; not indicated -Nutrition; regular diet -Nicotine dependence- not indicated CODE STATUS-FULL ADMISSION STATUS-this patient will be admitted to observation status, expect no more than a one night hospital stay for evaluation and management of problems as outlined above. DISPOSITION-anticipate discharge to home after the hospital stay. PRIMARY CARE PROVIDER-[place] HOSPITALIST- Dr. Clay - Mortality Measure Prognosis:: Good
[2020-07-04] MEDS: Sodium Chloride 0.9% 1,000 ML IV SCH ×2 (05:26→13:52)
[2020-07-04] MEDS: HYDROmorphone 1 MG/ML Syringe IVPUSH PRN ×2 (06:44→10:38)
[2020-07-04] MEDS ORDERED: Albuterol 8 GM Inhaler INH PRN (07:53)
[2020-07-04] MEDS: Fluticasone-Salmeterol 55-14 MCG Powder Inhalent INH SCH ×2 (08:41→20:47)
[2020-07-04] MEDS: predniSONE 20 MG Tab PO SCH (08:41)
[2020-07-04] MEDS: Cephalexin 250 MG Cap PO SCH ×3 (08:41→20:47)
[2020-07-04] MEDS: Gabapentin 400 MG Cap PO SCH ×3 (08:42→20:48)
[2020-07-04] MEDS: Potassium Chloride 10 MEQ Cap.ER PO SCH (08:42)
[2020-07-04] MEDS: Cyclobenzaprine 10 MG Tab PO PRN ×3 (08:45→17:01)
--- NOTE | 2020-07-04 09:00 | CR ---
Ankle Min 3V Lt, CLINICAL HISTORY: Pain and deformity FINDINGS: The soft tissues are swollen. There is a comminuted fracture of the distal fibula. Chronology is uncertain. Ankle mortise is anatomic. Impression: Comminuted distal fibular fracture of uncertain chronology. Femur Min 2V Rt CLINICAL HISTORY: Pain FINDINGS: There is no acute fracture within the femur. No destructive changes are seen. Patient has a total knee arthroplasty. There has been previous surgical fixation in the junction of the middle and distal third of the femoral shaft. Impression: No acute fracture/dislocation Previous total knee arthroplasty
--- NOTE | 2020-07-04 10:31 | PCM.PN ---
- General Info Date of Service: 07/04/20 Admission Dx/Problem (Free Text): Patient admitted on the overnight after a fall. Notes pain in the proximal posterior thigh, distal LLE. Ambulation was attempted on the patient but this was not successful. Patient's images are being reviewed by Dr. Nolan for consideration of management plan. Patient otherwise well and without complaints. Patient had prior fx in February of 2020 in same location. Functional Status: Reports: Pain Controlled, Tolerating Diet - Review of Systems General: Reports: No Symptoms HEENT: Reports: No Symptoms Pulmonary: Reports: No Symptoms Cardiovascular: Reports: No Symptoms Gastrointestinal: Reports: No Symptoms Musculoskeletal: Reports: Leg Pain (Notes pain in the posterior distal R hamstring, LLE distally at ankle) - Patient Data Vitals - Most Recent: Last Vital Signs Temp 98.8 F 07/04/20 09:00 Pulse 55 L 07/04/20 09:00 Resp 16 07/04/20 09:00 BP 143/81 H 07/04/20 09:00 Pulse Ox 96 07/04/20 09:00 Weight - Most Recent: 230 lb I&O - Last 24 Hours: Intake & Output 07/03/20 07/04/20 07/04/20 22:59 06:59 14:59 Intake Total 667 Balance 667 Lab Results Last 24 Hours: Laboratory Results - last 24 hr 07/03/20 07/03/20 07/03/20 Range/Units 20:12 20:12 20:12 WBC 9.6 (4.5-11.0) K/uL RBC 4.49 (4.30-5.90) M/uL Hgb 13.2 (12.0-15.0) g/dL Hct 41.1 (40.0-54.0) % MCV 92 (80-98) fL MCH 29 (27-31) pg MCHC 32 (32-36) % Plt Count 287 (150-400) K/uL Neut % (Auto) 67 H (36-66) % Lymph % (Auto) 21 L (24-44) % [place] % (Auto) 12 H (2-6) % Eos % (Auto) 0 L (2-4) % Baso % (Auto) 0 (0-1) % PT 15.0 H (9.5-12.0) sec INR 1.38 H (0.80-1.20) APTT 27.9 (27.0-36.0) sec D-Dimer, Quantitative (0.0-400.0) ng/mL Sodium 144 (140-148) mmol/L Potassium 4.2 (3.6-5.2) mmol/L Chloride 111 H (100-108) mmol/L Carbon Dioxide 22 (21-32) mmol/L Anion Gap 15.2 H (5.0-14.0) mmol/L BUN 16 (7-18) mg/dL Creatinine 1.2 (0.8-1.3) mg/dL Est Cr Clr Drug Dosing TNP Estimated GFR (MDRD) > 60 (>60) Glucose 135 H (74-106) mg/dL Calcium 8.6 (8.5-10.1) mg/dL Ferritin (8-388) ng/ml Total Bilirubin 0.5 (0.2-1.0) mg/dL AST 22 (15-37) U/L ALT 36 (12-78) U/L Alkaline Phosphatase 78 (46-116) U/L C-Reactive Protein (0.0-0.3) mg/dL Total Protein 5.9 L (6.4-8.2) g/dL Albumin 3.2 L (3.4-5.0) g/dL Globulin 2.7 (2.3-3.5) g/dL Albumin/Globulin Ratio 1.2 (1.2-2.2) 07/04/20 07/04/20 07/04/20 Range/Units 05:51 08:23 08:23 WBC 9.0 (4.5-11.0) K/uL RBC 4.20 L (4.30-5.90) M/uL Hgb 12.2 (12.0-15.0) g/dL Hct 38.9 L (40.0-54.0) % MCV 93 (80-98) fL MCH 29 (27-31) pg MCHC 31 L (32-36) % Plt Count 271 (150-400) K/uL Neut % (Auto) 60 (36-66) % Lymph % (Auto) 25 (24-44) % [place] % (Auto) 14 H (2-6) % Eos % (Auto) 1 L (2-4) % Baso % (Auto) 0 (0-1) % PT 14.7 H (9.5-12.0) sec INR 1.36 H (0.80-1.20) APTT (27.0-36.0) sec D-Dimer, Quantitative 169 (0.0-400.0) ng/mL Sodium (140-148) mmol/L Potassium (3.6-5.2) mmol/L Chloride (100-108) mmol/L Carbon Dioxide (21-32) mmol/L Anion Gap (5.0-14.0) mmol/L BUN (7-18) mg/dL Creatinine (0.8-1.3) mg/dL Est Cr Clr Drug Dosing Estimated GFR (MDRD) (>60) Glucose (74-106) mg/dL Calcium (8.5-10.1) mg/dL Ferritin (8-388) ng/ml Total Bilirubin (0.2-1.0) mg/dL AST (15-37) U/L ALT (12-78) U/L Alkaline Phosphatase (46-116) U/L C-Reactive Protein (0.0-0.3) mg/dL Total Protein (6.4-8.2) g/dL Albumin (3.4-5.0) g/dL Globulin (2.3-3.5) g/dL Albumin/Globulin Ratio (1.2-2.2) 07/04/20 Range/Units 08:23 WBC (4.5-11.0) K/uL RBC (4.30-5.90) M/uL Hgb (12.0-15.0) g/dL Hct (40.0-54.0) % MCV (80-98) fL MCH (27-31) pg MCHC (32-36) % Plt Count (150-400) K/uL Neut % (Auto) (36-66) % Lymph % (Auto) (24-44) % [place] % (Auto) (2-6) % Eos % (Auto) (2-4) % Baso % (Auto) (0-1) % PT (9.5-12.0) sec INR (0.80-1.20) APTT (27.0-36.0) sec D-Dimer, Quantitative (0.0-400.0) ng/mL Sodium 143 (140-148) mmol/L Potassium 3.7 (3.6-5.2) mmol/L Chloride 108 (100-108) mmol/L Carbon Dioxide 24 (21-32) mmol/L Anion Gap 11.4 (5.0-14.0) mmol/L BUN 13 (7-18) mg/dL Creatinine 0.9 (0.8-1.3) mg/dL Est Cr Clr Drug Dosing 93.87 Estimated GFR (MDRD) > 60 (>60) Glucose 92 (74-106) mg/dL Calcium 8.3 L (8.5-10.1) mg/dL Ferritin 144 (8-388) ng/ml Total Bilirubin 0.5 (0.2-1.0) mg/dL AST 22 (15-37) U/L ALT 34 (12-78) U/L Alkaline Phosphatase 66 (46-116) U/L C-Reactive Protein 0.35 H (0.0-0.3) mg/dL Total Protein 5.6 L (6.4-8.2) g/dL Albumin 2.9 L (3.4-5.0) g/dL Globulin 2.7 (2.3-3.5) g/dL Albumin/Globulin Ratio 1.1 L (1.2-2.2) Med Orders - Current: Current Medications Albuterol (Proventil Neb Soln) 2.5 mg NEB Q4H PRN PRN Reason: Shortness Of Breath/wheezing Albuterol (Ventolin Hfa) 0 gm INH QID PRN PRN Reason: Shortness of Breath Albuterol/Ipratropium (Duoneb 3.0-0.5 Mg/3 Ml) 3 ml NEB QID PRN PRN Reason: Shortness Of Breath/wheezing Bisacodyl (Dulcolax) 5 mg PO DAILY PRN PRN Reason: Constipation Cephalexin (Keflex) 500 mg PO TID [facility] Last Admin: 07/04/20 08:41 Dose: 500 mg Documented by: Cyclobenzaprine HCl (Flexeril) 10 mg PO TID PRN PRN Reason: Spasms Last Admin: 07/04/20 08:45 Dose: 10 mg Documented by: Docusate Sodium (Colace) 100 mg PO BID PRN PRN Reason: Constipation Furosemide (Lasix) 40 mg PO ASDIRECTED PRN PRN Reason: Edema Gabapentin (Neurontin) 1,200 mg PO TID [facility] Last Admin: 07/04/20 08:42 Dose: 1,200 mg Documented by: Hydromorphone HCl (Dilaudid) 1 mg IVPUSH Q4H PRN PRN Reason: Pain (severe 7-10) Last Admin: 07/04/20 06:44 Dose: 1 mg Documented by: Sodium Chloride (Normal Saline) 1,000 mls @ 125 mls/hr IV ASDIRECTED [facility] Last Admin: 07/04/20 05:26 Dose: 125 mls/hr Documented by: Lorazepam (Ativan) 1 mg IV Q6H PRN PRN Reason: Nausea/Vomiting Naloxegol (Movantik) 25 mg PO SA [facility] Ondansetron HCl (Zofran Odt) 4 mg PO Q6H PRN PRN Reason: Nausea able to take PO Ondansetron HCl (Zofran) 4 mg IV Q4H PRN PRN Reason: Nausea/Vomiting Potassium Chloride (Potassium Chloride) 10 meq PO DAILY [facility] Last Admin: 07/04/20 08:42 Dose: 10 meq Documented by: Prednisone (Prednisone) 20 mg PO DAILY@0800 [facility] Last Admin: 07/04/20 08:41 Dose: 20 mg Documented by: Propranolol HCl (Inderal La) 240 mg PO BEDTIME [facility] Fluticasone/Salmeterol (Fluticasone-Salmeterol 55-14 Mcg Powder Inh) 1 puff INH BIDRT [facility] Last Admin: 07/04/20 08:41 Dose: 1 puff Documented by: Warfarin Sodium (Coumadin) 3 mg PO MoWeFr@1300 [facility] Warfarin Sodium (Coumadin) 1.5 mg PO SuTuThSa@1300 [facility] Discontinued Medications Hydromorphone HCl (Dilaudid) 0.5 mg IVPUSH Q1H PRN PRN Reason: Pain (moderate 4-6) Stop: 07/04/20 00:02 Last Admin: 07/03/20 23:26 Dose: 0.5 mg Documented by: Hydromorphone HCl (Dilaudid) 0.5 mg IVPUSH ONETIME ONE Stop: 07/03/20 20:27 Last Admin: 07/03/20 20:33 Dose: 0.5 mg Documented by: Sodium Chloride (Normal Saline) 1,000 mls @ 125 mls/hr IV ASDIRECTED [facility] Last Admin: 07/03/20 20:11 Dose: 125 mls/hr Documented by: Piperacillin Sod/Tazobactam (Sod 3.375 gm/ Sodium Chloride) 50 mls @ 100 mls/hr IV ONETIME [facility] Last Admin: 07/03/20 21:01 Dose: 100 mls/hr Documented by: Sodium Chloride (Saline Flush) 10 ml FLUSH ASDIRECTED PRN PRN Reason: Keep Vein Open - Exam Quality Assessment: DVT Prophylaxis. No: Supplemental Oxygen General: Alert, Oriented, Cooperative HEENT: Pupils Equal Lungs: Clear to Auscultation, Normal Respiratory Effort Cardiovascular: Regular Rate, Regular Rhythm, No Murmurs GI/Abdominal Exam: Normal Bowel Sounds, Soft, Non-Tender Back Exam: Normal Inspection Extremities: Normal Inspection, Leg Pain (There is pain without tightness or erythema or edema on the distal R posterior thigh c/w hamstring strain. There is pain in the distal LLE c/w identified fx.) Peripheral Pulses: 2+: Posterior Tibial (L), Posterior Tibial (R), Dorsalis Pedis (L), Dorsalis Pedis (R) Neurological: No New Focal Deficit Psy/Mental Status: Alert, Normal Affect, Normal Mood Sepsis Event Note - Evaluation Sepsis Screening Result: No Definite Risk - Focused Exam Vital Signs: Vital Signs Temp Pulse Resp BP Pulse Ox 07/04/20 09:00 98.8 F 55 L 16 143/81 H 96 07/04/20 07:52 94 L 07/04/20 05:25 98.2 F 52 L 14 153/70 H 97 07/04/20 03:21 53 L 94 L 07/04/20 00:45 96 07/03/20 23:35 97.7 F 56 L 18 168/84 H 99 07/03/20 22:31 54 L 22 H 185/78 H 97 - Problem List Review Problem List Initiated/Reviewed/Updated: Yes - My Orders Last 24 Hours: My Active Orders 07/04/20 09:04 Consult to Orthopedics [CONS] Routine 07/04/20 09:05 Notify Provider Consults [RC] ASDIRECTED - Plan Plan:: Assessment/Plan Comment:: Fracture of distal fibula ASSESSMENT AND PLAN This is a 64 year old male who was moving out of his home, slipped on the stairs, fell and injuries to head, right upper leg and hip and left ankle. He was seen in ER had a Head CT which was negative for acute process, right hip and femur negative for acute bony injury, and left distal fibula fracture was noted. He tried to ambulate but was unable due to right leg pain and left fracture ankle. plan to admit to Observation for pain control and consults to OT, PT and Orthopedics. XR reviewed and confirmed presence of comminuted fx of the distal L ankle. However, I do see what, to my untrained eye, looks like some focal points of healing. Fracture of commuted left distal fibula- history of prior fracture February. Fall at home, contusion of right hip, closed head injury. -IV fluids Normal Saline 125ml/hr -IV Dilaudid 1 mg every 4 hours as needed for pain -pulse ox -PO pain medication. -consult to OT, PT -Inpatient c/s to Orthopedics to determine need for definitive management (called to Dr. Nolan on 04 July 2020 at 8:45 am) - Images being reviewed by Ortho at this time - Awaiting c/s recommendations CHRONIC ANTICOAGULATION-INR subtherapeutic INR 1.38. report history of pulmonary embolism -continue outpatient medication -continue warfarin daily -Reassess INR in a.m. CORONARY ARTERY DISEASE-currently asymptomatic -continue outpatient medication MAINTENANCE ISSUES -DVT prophylaxis; current therapy with warfarin should provide adequate DVT prophylaxis -GI prophylaxis; continue outpatient PPI therapy -Villa catheter; not indicated -Nutrition; regular diet -Nicotine dependence- not indicated CODE STATUS-FULL ADMISSION STATUS-this patient will be admitted to observation status, expect no more than a one night hospital stay for evaluation and management of problems as outlined above. DISPOSITION-anticipate discharge to home after the hospital stay. PRIMARY CARE PROVIDER-PAOLA Tran M.D. 04 July 2020
[2020-07-04] MEDS: HYDROmorphone 2 MG Tab PO PRN ×3 (14:09→22:21)
[2020-07-04] MEDS: Propranolol 80 MG Cap.ER PO SCH (20:47)
[2020-07-05] MEDS: HYDROmorphone 2 MG Tab PO PRN ×4 (01:13→22:12)
[2020-07-05] MEDS ORDERED: Morphine 15 MG Tab.ER PO SCH (01:30)
[2020-07-05] MEDS: Acetaminophen/HYDROcodone 325-10 MG Tab PO PRN ×3 (02:01→20:38)
[2020-07-05] MEDS: Fluticasone-Salmeterol 55-14 MCG Powder Inhalent INH SCH ×2 (07:16→20:36)
[2020-07-05] MEDS: Cyclobenzaprine 10 MG Tab PO PRN ×2 (08:17→14:13)
[2020-07-05] MEDS: predniSONE 20 MG Tab PO SCH (08:19)
[2020-07-05] MEDS: Cephalexin 250 MG Cap PO SCH ×3 (08:19→20:37)
[2020-07-05] MEDS: Gabapentin 400 MG Cap PO SCH ×3 (08:19→20:37)
[2020-07-05] MEDS: Potassium Chloride 10 MEQ Cap.ER PO SCH (08:22)
--- NOTE | 2020-07-05 10:29 | PCM.PN ---
- General Info Date of Service: 07/05/20 Admission Dx/Problem (Free Text): Seen for fracture distal L fibula This is well stabilized in splint. Discussed with PT this Am and rest of team. Patient still endorsing pain in the R thigh/hip. No other issues are noted this Am - pain is generally controlled well. Home pain meds reordered on the overnight. Functional Status: Reports: Pain Controlled. Denies: New Symptoms - Review of Systems General: Reports: No Symptoms HEENT: Reports: No Symptoms Pulmonary: Reports: No Symptoms Cardiovascular: Reports: No Symptoms Gastrointestinal: Reports: No Symptoms - Patient Data Vitals - Most Recent: Last Vital Signs Temp 97.9 F 07/05/20 07:03 Pulse 60 07/05/20 07:03 Resp 16 07/05/20 07:03 BP 133/69 07/05/20 07:03 Pulse Ox 95 07/05/20 07:03 Weight - Most Recent: 230 lb I&O - Last 24 Hours: Intake & Output 07/04/20 07/05/20 07/05/20 22:59 06:59 14:59 Intake Total 300 300 Output Total 1075 750 500 Balance -775 -450 -500 Med Orders - Current: Current Medications Hydrocodone Bitart/Acetaminophen (Ehrenberg 325-10 Mg) 1 tab PO Q4H PRN PRN Reason: Pain Last Admin: 07/05/20 02:01 Dose: 1 tab Documented by: Albuterol (Proventil Neb Soln) 2.5 mg NEB Q4H PRN PRN Reason: Shortness Of Breath/wheezing Albuterol (Ventolin Hfa) 0 gm INH QID PRN PRN Reason: Shortness of Breath Albuterol/Ipratropium (Duoneb 3.0-0.5 Mg/3 Ml) 3 ml NEB QID PRN PRN Reason: Shortness Of Breath/wheezing Bisacodyl (Dulcolax) 5 mg PO DAILY PRN PRN Reason: Constipation Cephalexin (Keflex) 500 mg PO TID [facility] Last Admin: 07/05/20 08:19 Dose: 500 mg Documented by: Cyclobenzaprine HCl (Flexeril) 10 mg PO TID PRN PRN Reason: Spasms Last Admin: 07/05/20 08:17 Dose: 10 mg Documented by: Docusate Sodium (Colace) 100 mg PO BID PRN PRN Reason: Constipation Furosemide (Lasix) 40 mg PO ASDIRECTED PRN PRN Reason: Edema Gabapentin (Neurontin) 1,200 mg PO TID [facility] Last Admin: 07/05/20 08:19 Dose: 1,200 mg Documented by: Hydromorphone HCl (Dilaudid) 1 mg PO Q3H PRN PRN Reason: Pain Last Admin: 07/05/20 08:17 Dose: 1 mg Documented by: Lorazepam (Ativan) 1 mg IV Q6H PRN PRN Reason: Nausea/Vomiting Morphine Sulfate (Ms Contin) 15 mg PO BID [facility] Ondansetron HCl (Zofran Odt) 4 mg PO Q6H PRN PRN Reason: Nausea able to take PO Ondansetron HCl (Zofran) 4 mg IV Q4H PRN PRN Reason: Nausea/Vomiting Potassium Chloride (Potassium Chloride) 10 meq PO DAILY [facility] Last Admin: 07/05/20 08:22 Dose: 10 meq Documented by: Prednisone (Prednisone) 20 mg PO DAILY@0800 [facility] Last Admin: 07/05/20 08:19 Dose: 20 mg Documented by: Propranolol HCl (Inderal La) 240 mg PO BEDTIME [facility] Last Admin: 07/04/20 20:47 Dose: 240 mg Documented by: Fluticasone/Salmeterol (Fluticasone-Salmeterol 55-14 Mcg Powder Inh) 1 puff INH BIDRT [facility] Last Admin: 07/05/20 07:16 Dose: 1 puff Documented by: Warfarin Sodium (Coumadin) 3 mg PO MoWeFr@1300 [facility] Warfarin Sodium (Coumadin) 1.5 mg PO SuTuThSa@1300 [facility] Last Admin: 07/04/20 14:09 Dose: 1.5 mg Documented by: Discontinued Medications Hydromorphone HCl (Dilaudid) 0.5 mg IVPUSH Q1H PRN PRN Reason: Pain (moderate 4-6) Stop: 07/04/20 00:02 Last Admin: 07/03/20 23:26 Dose: 0.5 mg Documented by: Hydromorphone HCl (Dilaudid) 0.5 mg IVPUSH ONETIME ONE Stop: 07/03/20 20:27 Last Admin: 07/03/20 20:33 Dose: 0.5 mg Documented by: Hydromorphone HCl (Dilaudid) 1 mg IVPUSH Q4H PRN PRN Reason: Pain (severe 7-10) Last Admin: 07/04/20 10:38 Dose: 1 mg Documented by: Sodium Chloride (Normal Saline) 1,000 mls @ 125 mls/hr IV ASDIRECTED [facility] Last Admin: 07/03/20 20:11 Dose: 125 mls/hr Documented by: Piperacillin Sod/Tazobactam (Sod 3.375 gm/ Sodium Chloride) 50 mls @ 100 mls/hr IV ONETIME [facility] Last Admin: 07/03/20 21:01 Dose: 100 mls/hr Documented by: Sodium Chloride (Normal Saline) 1,000 mls @ 125 mls/hr IV ASDIRECTED [facility] Last Admin: 07/04/20 13:52 Dose: 125 mls/hr Documented by: Morphine Sulfate (Ms Contin) 15 mg PO Q12H [facility] Last Admin: 07/05/20 02:00 Dose: 15 mg Documented by: Sodium Chloride (Saline Flush) 10 ml FLUSH ASDIRECTED PRN PRN Reason: Keep Vein Open - Exam Quality Assessment: DVT Prophylaxis (On coumadin with last INR 1.38 - repeat pending). No: Supplemental Oxygen General: Alert, Oriented, Cooperative, Mild Distress Lungs: Clear to Auscultation, Normal Respiratory Effort Cardiovascular: Regular Rate, Regular Rhythm GI/Abdominal Exam: Normal Bowel Sounds Sepsis Event Note - Evaluation Sepsis Screening Result: No Definite Risk - Focused Exam Vital Signs: Vital Signs Temp Pulse Resp BP Pulse Ox 07/05/20 07:03 97.9 F 60 16 133/69 95 07/05/20 04:00 99.2 F 59 L 16 149/74 H 95 - Problem List Review Problem List Initiated/Reviewed/Updated: Yes - My Orders Last 24 Hours: My Active Orders 07/04/20 10:48 HYDROmorphone [Dilaudid] 1 mg PO Q3H PRN 07/05/20 01:31 Acetaminophen/HYDROcodone [Ehrenberg 325-10 MG] 1 tab PO Q4H PRN 07/05/20 10:09 INR,PT,PROTHROMBIN TIME [COAG] Routine 07/05/20 11:30 Morphine [MS Contin] 15 mg PO BID - Plan Plan:: Assessment/Plan Comment:: Fracture of distal fibula ASSESSMENT AND PLAN This is a 64 year old male who was moving out of his home, slipped on the stairs, fell and injuries to head, right upper leg and hip and left ankle. He was seen in ER had a Head CT which was negative for acute process, right hip and femur negative for acute bony injury, and left distal fibula fracture was noted. He tried to ambulate but was unable due to right leg pain and left fracture ankle. plan to admit to Observation for pain control and consults to OT, PT and Orthopedics. XR reviewed and confirmed presence of comminuted fx of the distal L ankle. However, I do see what, to my untrained eye, looks like some focal points of healing. Fracture of commuted left distal fibula- history of prior fracture February. Fall at home, contusion of right hip, closed head injury. -IV fluids Normal Saline 125ml/hr -IV Dilaudid 1 mg every 4 hours as needed for pain -pulse ox -PO pain medication, home pain meds -consult to OT, PT -Inpatient c/s to Orthopedics to see - Images being reviewed by Ortho at this time - Recs at present for LLE include continued splinting v CAM boot w/ appropriate pain control - Dr. Nolan to see today. CHRONIC ANTICOAGULATION-INR subtherapeutic INR 1.38. report history of pulmonary embolism -continue outpatient medication -continue warfarin daily -Reassess INR in a.m. CORONARY ARTERY DISEASE-currently asymptomatic -continue outpatient medication MAINTENANCE ISSUES -DVT prophylaxis; current therapy with warfarin should provide adequate DVT prophylaxis -GI prophylaxis; continue outpatient PPI therapy -Villa catheter; not indicated -Nutrition; regular diet -Nicotine dependence- not indicated CODE STATUS-FULL ADMISSION STATUS-this patient will be admitted to observation status, expect no more than a one night hospital stay for evaluation and management of problems as outlined above. DISPOSITION-anticipate discharge to home after the hospital stay. PRIMARY CARE PROVIDER-PAOLA Tran M.D. 05 July 2020
[2020-07-05] MEDS: Morphine 15 MG Tab.ER PO SCH ×2 (11:42→20:37)
--- NOTE | 2020-07-05 12:36 | PCM.SN.2 ---
- Free Text/Narrative Note: Patient INR was 1.17 this AM. Given prior clot history, this is not adequate anticoagulation. Plan: 1. Start lovenox 40 mg SQ daily until INR >2.0 for 2 consecutive days 2. Increase coumadin to 6 mg po daily (had been on 3 mg po //, 1.5 the remaining days) Conitnue to trend INR Guillermo Clay M.D. 05 July 2020
--- NOTE | 2020-07-05 12:57 | CR ---
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 Components appear well seated. No fracture is identified. IMPRESSION: 3 component total knee arthroplasty appears intact No fracture
[2020-07-05] MEDS: Enoxaparin 40 MG/0.4 ML Syringe SUBCUT SCH (14:03)
--- NOTE | 2020-07-05 16:01 | PCM.CONS ---
H&P History of Present Illness - General Date of Service: 07/05/20 Admit Problem/Dx: Seen for fracture distal L fibula This is well stabilized in splint. Discussed with PT this Am and rest of team. Patient still endorsing pain in the R thigh/hip. No other issues are noted this Am - pain is generally controlled well. Home pain meds reordered on the overnight. Source of Information: Patient - History of Present Illness Initial Comments - Free Text/Narative: 64 y/o admitted after a fall down a few steps at his home. Hit his head but no LOC. Currently reports right posterior hip and thigh pain with motion and mild left ankle pain. Initially fractured left ankle in February and apparently did not have any immobilization or follow up after the injury. Reports that just prior to this current injury he was able to walk on it with minimal discomfort. Mobility is further compromised by multiple surgeries on the left knee due to an infected TKA which has left him with limited ROM and weakness of the left leg. Location: Reports: Lower Extremity, Left, Lower Extremity, Right Severity: Moderate Improves with: Reports: Rest Worsens with: Reports: Movement Associated Symptoms: Reports: No Other Symptoms Right Leg Pain Score (Numeric/FACES): 0 Headache Pain Score (Numeric/FACES): 5 - Related Data Allergies/Adverse Reactions: Allergies Allergy/AdvReac Type Severity Reaction Status Date / Time clindamycin Allergy Bradycardia Verified 07/03/20 19:58 Sulfa (Sulfonamide Allergy Lethargy Verified 07/03/20 19:58 Antibiotics) venom-honey bee Allergy Anaphylactic Verified 07/03/20 19:58 [bee venom (honey bee)] Shock Home Medications: Home Meds Albuterol Sulfate [Proair Hfa] 1 puff IH QID PRN 10/16/13 [History] Calcium Carbonate/Vitamin D3 [Calcium 500 + Vit D 200 Tablet] 600 mg PO BID 10/16/13 [History] Cyclobenzaprine [Flexeril] 10 mg PO TID PRN 10/16/13 [History] Fluticasone/Salmeterol [Advair 100-50 Diskus] 1 puff INH BID 10/16/13 [History] Furosemide [Lasix] 20 mg PO ASDIRECTED PRN 10/16/13 [History] Gabapentin 1,500 mg PO TID 10/16/13 [History] Hydrocodone/Acetaminophen [[place] 10-325] 1 tab PO Q4H PRN 10/16/13 [History] Magnesium Amino Acid Chelate [Magnesium] 100 mg PO DAILY 10/16/13 [History] Multivitamin [Men's Multi-Vitamin] 1 each PO DAILY 10/16/13 [History] Propranolol [Inderal LA 24 Hr] 240 mg PO BEDTIME 10/16/13 [History] predniSONE [Prednisone] 20 mg PO DAILY 10/16/13 [History] Warfarin [Coumadin] 3 mg PO ASDIRECTED 11/24/14 [History] Potassium Chloride 10 meq PO DAILY 03/19/18 [History] Aspirin 81 mg PO DAILY 03/24/20 [History] Morphine [MS Contin] 15 mg PO BID 03/24/20 [History] Naloxegol Oxalate [Movantik] 25 mg PO SA 03/24/20 [History] atorvaSTATin [Lipitor] 40 mg PO DAILY 03/24/20 [History] cephALEXin [Keflex] 500 mg PO TID 03/24/20 [History] Ketorolac [Toradol] 10 mg PO Q6H PRN 07/03/20 [History] Promethazine [Phenergan] 25 mg PO Q6H PRN 07/03/20 [History] diphenhydrAMINE [Benadryl] 25 mg PO Q6H PRN 07/03/20 [History] Past Medical History HEENT History: Reports: Impaired Vision Cardiovascular History: Reports: Blood Clots/VTE/DVT, High Cholesterol, Hypertension Respiratory History: Reports: PE Genitourinary History: Reports: Renal Calculus, Renal Disease Other Genitourinary History: CKD 3 Musculoskeletal History: Reports: Back Pain, Chronic, Fracture, Other (See Below) Other Musculoskeletal History: Spinal surgery. L distal fibular fx (02/2020 from fall), reinjury 07/03/2020 from fall down 3 steps. R hamstring strain (fall down 3 steps 07/03/2020) Neurological History: Reports: Brain Injury, CVA, Migraines Psychiatric History: Reports: PTSD Endocrine/Metabolic History: Reports: Hypothyroidism, Other (See Below) Other Endocrine/Metabolic History: Wendy's Granulomatosis Hematologic History: Reports: Anticoagulation Therapy, Other (See Below) Other Hematologic History: H/o PE Immunologic History: Reports: Immunosuppression Dermatologic History: Reports: Cellulitis - Infectious Disease History Infectious Disease History: Reports: Chicken Pox - Past Surgical History Head Surgeries/Procedures: Reports: None Neurological Surgical History: Reports: Lumbar Spine, Spinal Fusion Musculoskeletal Surgical History: Reports: Knee Replacement, Other (See Below) Other Musculoskeletal Surgeries/Procedures:: -L TKA with resection and Antibio tic spacers with eventual revision with patient reporting chronic instability and give-way with multiple falls (avg of every other day reported on 07/04/2020). -R TKA Social & Family History - Family History Family Medical History: Noncontributory - Tobacco Use Tobacco Use Status *Q: Never Tobacco User - Caffeine Use Caffeine Use: Reports: Soda - Recreational Drug Use Recreational Drug Use: No - Living Situation & Occupation Living situation: Reports: (moving to [place] from home on [address] H&P Review of Systems - Review of Systems: Review Of Systems: See Below General: Reports: No Symptoms Musculoskeletal: Reports: Leg Pain Neurological: Reports: No Symptoms Exam - Exam Exam: See Below - Vital Signs Vital Signs: Last Vital Signs Temp 36.9 C 07/05/20 11:30 Pulse 58 L 07/05/20 11:30 Resp 16 07/05/20 11:30 BP 144/62 H 07/05/20 11:30 Pulse Ox 93 L 07/05/20 11:30 Weight: 104.326 kg - Exam General: Alert, Oriented, 4 Extremities: Joint Swelling, Limited Range of Motion, Other (left ankle) Skin: Wound (left knee, superficial ) Neurological: Cranial Nerves Intact Neuro Extensive - Mental Status: Alert, Oriented x3, Normal Mood/Affect, Normal Cognition, Memory Intact Physical Exam Comments:: Left ankle with mild swelling, dorsiflexion and plantar flexion decreased, no gross instability. Left knee with superficial abrasion over tibial tubercle, dressing changed, extensor mechanism intact, knee with mild swelling, stable to varus valgus, quad weakness, flexion decreased but has been since his last revision. Right leg with pain in posterior thigh and hip, pain with extension of knee, flexion of hip and active flexion of knee, Right total knee stable. - Patient Data Lab Results Last 24 hrs: Laboratory Results - last 24 hr 07/05/20 Range/Units 10:09 PT 12.7 H (9.5-12.0) sec INR 1.17 (0.80-1.20) Result Diagrams: 07/04/20 08:23 07/04/20 08:23 Sepsis Event Note - Evaluation Sepsis Screening Result: No Definite Risk - Focused Exam Vital Signs: Vital Signs Temp Pulse Resp BP Pulse Ox 07/05/20 11:30 36.9 C 58 L 16 144/62 H 93 L 07/05/20 07:03 36.6 C 60 16 133/69 95 07/05/20 04:00 37.3 C 59 L 16 149/74 H 95 Consult PN Assessment/Plan Procedures: Procedures AIRWAY INHALATION TREATMENT (11/04/13) ASSAY OF LIPASE (06/05/20) COMPLETE CBC W/AUTO DIFF WBC (06/05/20) COMPREHEN METABOLIC PANEL (06/05/20) CT HEAD/BRAIN W/O DYE (06/05/20) CULTURE AEROBIC IDENTIFY (03/19/18) CULTURE OTHR SPECIMN AEROBIC (03/19/18) DRUG TEST PRSMV CHEM ANLYZR (06/05/20) ELECTROCARDIOGRAM TRACING (06/05/20) EMERGENCY DEPT VISIT (06/05/20) EMERGENCY DEPT VISIT (05/29/20) EMERGENCY DEPT VISIT (03/24/20) EMERGENCY DEPT VISIT (03/19/18) EMERGENCY DEPT VISIT (11/24/14) EMERGENCY DEPT VISIT (11/04/13) EMERGENCY DEPT VISIT (10/16/13) EMERGENCY DEPT VISIT (10/16/13) FIBRIN DEGRADATION QUANT (10/16/13) HYDRATE IV INFUSION ADD-ON (10/16/13) MICROBE SUSCEPTIBLE NANCY (03/19/18) MRI JNT OF LWR EXTRE W/O DYE (02/21/14) PROTHROMBIN TIME (06/05/20) PT EVALUATION (01/23/14) RBC SED RATE NONAUTOMATED (10/16/13) ROUTINE VENIPUNCTURE (06/05/20) SMEAR GRAM STAIN (03/19/18) THER/PROPH/DIAG INJ IV PUSH (10/16/13) THER/PROPH/DIAG INJ SC/IM (03/27/20) THER/PROPH/DIAG IV INF INIT (03/19/18) THERAPEUTIC EXERCISES (01/23/14) URINALYSIS AUTO W/SCOPE (06/05/20) X-RAY EXAM CHEST 2 VIEWS (06/05/20) X-RAY EXAM L-S SPINE 2/3 VWS (02/21/17) X-RAY EXAM OF FINGER(S) (11/24/14) X-RAY EXAM OF KNEE 3 (02/21/17) X-RAY EXAM OF LOWER LEG (03/27/20) X-RAY EXAM SI JOINTS 3/> VWS (02/21/17) (1) Hamstring muscle strain SNOMED Code(s): 931931248807 Code(s): S76.319A - STRAIN OF MSL/FASC/TND POST GRP AT THI LEV, UNSP THIGH, INIT Current Visit: Yes Qualifiers: Encounter type: initial encounter Laterality: right Qualified Code(s): S76.311A - Strain of muscle, fascia and tendon of the posterior muscle group at thigh level, right thigh, initial encounter (2) Abrasion, left knee, initial encounter SNOMED Code(s): 50597985902090863 Code(s): S80.212A - ABRASION, LEFT KNEE, INITIAL ENCOUNTER Priority: Medium Current Visit: Yes (3) Fall down stairs SNOMED Code(s): 742544366 Code(s): W10.8XXA - FALL (ON) (FROM) OTHER STAIRS AND STEPS, INITIAL ENCOUNTER Priority: Medium Current Visit: Yes Qualifiers: Encounter type: initial encounter Qualified Code(s): W10.8XXA - Fall (on) (from) other stairs and steps, initial encounter (4) Fracture of fibula SNOMED Code(s): 40298680 Code(s): S82.409A - UNSP FRACTURE OF SHAFT OF UNSP FIBULA, INIT FOR CLOS FX Priority: High Current Visit: Yes Comment: Comminuted fracture of the distal fibula without widening of the mortise. Assessment:: Delayed union of left fibula in adequate position and stable. Acute right hamstring strain. S/p right total knee, stable. S/P Revision left total knee with residual weakness and limited ROM. No new injury other than superficial abrasion. Problem List Initiated/Reviewed/Updated: Yes Plan: Splint removed from left ankle and Gel-Cast stirrup brace applied. He may weight bear as tolerated on the left foot. Crutches or walker and WBAT on left leg. No surgery planned, can be treated non-operatively. Abrasion left knee dressing changed, may be removed tomorrow and ok to shower and cover with bandage needed. He will work with PT again now that the large splint is off and should be ok for discharge tomorrow morning. Recommend follow up with Ortho here or in [place] in 2-3 weeks for hamstring and ankle.
[2020-07-05] MEDS: Propranolol 80 MG Cap.ER PO SCH (20:38)
[2020-07-06] MEDS: Acetaminophen/HYDROcodone 325-10 MG Tab PO PRN ×2 (04:39→08:28)
[2020-07-06] MEDS: Fluticasone-Salmeterol 55-14 MCG Powder Inhalent INH SCH (07:28)
[2020-07-06] MEDS: predniSONE 20 MG Tab PO SCH (07:59)
[2020-07-06] MEDS: Cephalexin 250 MG Cap PO SCH (07:59)
[2020-07-06] MEDS: Enoxaparin 40 MG/0.4 ML Syringe SUBCUT SCH (07:59)
[2020-07-06] MEDS: Gabapentin 400 MG Cap PO SCH (08:00)
[2020-07-06] MEDS: Potassium Chloride 10 MEQ Cap.ER PO SCH (08:00)
[2020-07-06] MEDS: Morphine 15 MG Tab.ER PO SCH (08:02)
[2020-07-06] MEDS: HYDROmorphone 2 MG Tab PO PRN (08:28)
--- NOTE | 2020-07-06 10:45 | PCM.DCSUM1 ---
Discharge Summary - Hospital Course HPI Initial Comments: Mr. Flaco Redman is a 64 yo male admitted to [facility] for management of a non-displaced comminuted L ankle fx s/p fall. The patient was admitted for pain control and orthopedic consultation +/- surgical intervention. The patient was also noted to have pain in the distal R posterior thigh. The patient was found to have had a hamstring strain, but no other orthopedic injuries. The patient was maintained on his [employer] regime of pain medications but we did add po dilaudid to this and the patient is discharged on 10 tabs of this. He is to follow-up with Ortho and PCP within 1 wk or so. He was not felt to be a surgical candidate but is quite stable in the brace/splint. His INR was low throughout the admission and was discharged with an INR od 1.23. The patient is advised to resume 3 mg po q day of coumadin through the weekend Diagnosis: Stroke: No - Discharge Data Discharge Date: 07/06/20 Discharge Disposition: Home, Self-Care 01 Condition: Good - Referral to Home Health Primary Care Physician: PCP None - Patient Summary/Data Consults: Consultations 07/03/20 23:34 Consult to Physician [CONS] Routine Consulting Provider: Abhay Munoz Courtesy Call Completed to Consulting Physician: Yes: call at 2200 Reason for Consult: left distal fibula fracture Person Notified: Tammy Blank Date Notified: 07/03/20 Time Notified: 22:00 Special Instructions: will see in Clinic tomorrow or next Wednesday or OT Evaluation and Treatment [CONS] Routine Please Evaluate and Treat. OT Reason for Consult: Discharge Planning Special Instructions: fracture left ankle This query below is only for informational purposes and is not editable. Admission Diagnosis/Problem: Fracture of distal end of fibula PT Evaluation and Treatment [CONS] Routine Please Evaluate and Treat. PT Reason for Consult: Ambulation Special Instructions: left ankle fracture, TTWB can progress to WBAT This query below is only for informational purposes and is not editable. Admission Diagnosis/Problem: Fracture of distal end of fibula 07/04/20 09:04 Consult to Orthopedics [CONS] Routine Consulting Provider: Francisco Javier Nolan Courtesy Call Completed to Consulting Physician: Yes Reason for Consult: fall with fibula fracure - Patient Instructions Diet: Usual Diet as Tolerated Activity: Apply Ice, As Tolerated Driving: May Drive Today Showering/Bathing: May Shower - Discharge Plan *PRESCRIPTION DRUG MONITORING PROGRAM REVIEWED*: Not Applicable *COPY OF PRESCRIPTION DRUG MONITORING REPORT IN PATIENT ROSA: Not Applicable Prescriptions/Med Rec: Docusate Sodium [Colace] 100 mg PO BID PRN 30 Days #100 cap PRN Reason: Constipation HYDROmorphone [Dilaudid] 1 mg PO Q4H PRN #10 tablet PRN Reason: Pain bisacodyL [Dulcolax] 5 mg PO DAILY PRN 7 Days #30 tablet PRN Reason: Constipation Home Medications: Home Meds Albuterol Sulfate [Proair Hfa] 1 puff IH QID PRN 10/16/13 [History] Calcium Carbonate/Vitamin D3 [Calcium 500-Vit D3 200 Tablet] 600 mg PO BID 10/16/13 [History] Cyclobenzaprine [Flexeril] 10 mg PO TID PRN 10/16/13 [History] Fluticasone/Salmeterol [Advair 100-50] 1 puff INH BID 10/16/13 [History] Furosemide [Lasix] 20 mg PO ASDIRECTED PRN 10/16/13 [History] Gabapentin 1,500 mg PO TID 10/16/13 [History] Hydrocodone/Acetaminophen [[place] 10-325] 1 tab PO Q4H PRN 10/16/13 [History] Magnesium Amino Acid Chelate [Magnesium] 100 mg PO DAILY 10/16/13 [History] Multivitamin [Men's Multi-Vitamin] 1 each PO DAILY 10/16/13 [History] Propranolol [Inderal LA] 240 mg PO BEDTIME 10/16/13 [History] predniSONE [Prednisone] 20 mg PO DAILY 10/16/13 [History] Warfarin [Coumadin] 3 mg PO ASDIRECTED 11/24/14 [History] Potassium Chloride 10 meq PO DAILY 03/19/18 [History] Aspirin 81 mg PO DAILY 03/24/20 [History] Morphine [MS Contin] 15 mg PO BID 03/24/20 [History] Naloxegol Oxalate [Movantik] 25 mg PO SA 03/24/20 [History] atorvaSTATin [Lipitor] 40 mg PO DAILY 03/24/20 [History] cephALEXin [Keflex] 500 mg PO TID 03/24/20 [History] Ketorolac [Toradol] 10 mg PO Q6H PRN 07/03/20 [History] Promethazine [Phenergan] 25 mg PO Q6H PRN 07/03/20 [History] diphenhydrAMINE [Benadryl] 25 mg PO Q6H PRN 07/03/20 [History] Acetaminophen/HYDROcodone [[place] 325-10 MG] 1 tab PO Q4H PRN tablet 07/06/20 [R x] Docusate Sodium [Colace] 100 mg PO BID PRN 30 Days #100 cap 07/06/20 [Rx] HYDROmorphone [Dilaudid] 1 mg PO Q4H PRN #10 tablet 07/06/20 [Rx] Ondansetron [Zofran ODT] 4 mg PO Q6H PRN tab.dis 07/06/20 [Rx] bisacodyL [Dulcolax] 5 mg PO DAILY PRN 7 Days #30 tablet 07/06/20 [Rx] Forms: ED Department Discharge Referrals: Francisco Javier Nolan MD [Physician] - 07/11/20 3:00 pm (Please arrive 15 minutes early to register for your appointment. [place] at the ER desk.) - Discharge Summary/Plan Comment DC Time >30 min.: Yes - Patient Data Vitals - Most Recent: Last Vital Signs Temp 98 F 07/06/20 08:01 Pulse 52 L 07/06/20 08:01 Resp 16 07/06/20 08:01 BP 125/58 L 07/06/20 08:01 Pulse Ox 95 07/06/20 08:01 Weight - Most Recent: 230 lb I&O - Last 24 hours: Intake & Output 07/05/20 07/06/20 07/06/20 22:59 06:59 14:59 Intake Total 1100 250 Output Total 300 150 300 Balance 800 100 -300 Lab Results - Last 24 hrs: Laboratory Results - last 24 hr 07/05/20 07/06/20 Range/Units 10:09 06:03 PT 12.7 H 13.2 H (9.5-12.0) sec INR 1.17 1.22 H (0.80-1.20) Med Orders - Current: Current Medications Hydrocodone Bitart/Acetaminophen ([place] 325-10 Mg) 1 tab PO Q4H PRN PRN Reason: Pain Last Admin: 07/06/20 08:28 Dose: 1 tab Documented by: Albuterol (Proventil Neb Soln) 2.5 mg NEB Q4H PRN PRN Reason: Shortness Of Breath/wheezing Albuterol (Ventolin Hfa) 0 gm INH QID PRN PRN Reason: Shortness of Breath Albuterol/Ipratropium (Duoneb 3.0-0.5 Mg/3 Ml) 3 ml NEB QID PRN PRN Reason: Shortness Of Breath/wheezing Bisacodyl (Dulcolax) 5 mg PO DAILY PRN PRN Reason: Constipation Cephalexin (Keflex) 500 mg PO TID [facility] Last Admin: 07/06/20 07:59 Dose: 500 mg Documented by: Cyclobenzaprine HCl (Flexeril) 10 mg PO TID PRN PRN Reason: Spasms Last Admin: 07/05/20 14:13 Dose: 10 mg Documented by: Docusate Sodium (Colace) 100 mg PO BID PRN PRN Reason: Constipation Enoxaparin Sodium (Lovenox) 40 mg SUBCUT DAILY [facility] Last Admin: 07/06/20 07:59 Dose: 40 mg Documented by: Furosemide (Lasix) 40 mg PO ASDIRECTED PRN PRN Reason: Edema Gabapentin (Neurontin) 1,200 mg PO TID [facility] Last Admin: 07/06/20 08:00 Dose: 1,200 mg Documented by: Hydromorphone HCl (Dilaudid) 1 mg PO Q3H PRN PRN Reason: Pain Last Admin: 07/06/20 08:28 Dose: 1 mg Documented by: Lorazepam (Ativan) 1 mg IV Q6H PRN PRN Reason: Nausea/Vomiting Morphine Sulfate (Ms Contin) 15 mg PO BID [facility] Last Admin: 07/06/20 08:02 Dose: 15 mg Documented by: Ondansetron HCl (Zofran Odt) 4 mg PO Q6H PRN PRN Reason: Nausea able to take PO Ondansetron HCl (Zofran) 4 mg IV Q4H PRN PRN Reason: Nausea/Vomiting Potassium Chloride (Potassium Chloride) 10 meq PO DAILY [facility] Last Admin: 07/06/20 08:00 Dose: 10 meq Documented by: Prednisone (Prednisone) 20 mg PO DAILY@0800 [facility] Last Admin: 07/06/20 07:59 Dose: 20 mg Documented by: Propranolol HCl (Inderal La) 240 mg PO BEDTIME [facility] Last Admin: 07/05/20 20:38 Dose: 240 mg Documented by: Fluticasone/Salmeterol (Fluticasone-Salmeterol 55-14 Mcg Powder Inh) 1 puff INH BIDRT [facility] Last Admin: 07/06/20 07:28 Dose: 1 puff Documented by: Warfarin Sodium 5 mg/ Warfarin (Sodium 1 mg) 6 mg PO DAILY@1300 [facility] Last Admin: 07/05/20 14:05 Dose: 6 mg Documented by: Discontinued Medications Hydromorphone HCl (Dilaudid) 0.5 mg IVPUSH Q1H PRN PRN Reason: Pain (moderate 4-6) Stop: 07/04/20 00:02 Last Admin: 07/03/20 23:26 Dose: 0.5 mg Documented by: Hydromorphone HCl (Dilaudid) 0.5 mg IVPUSH ONETIME ONE Stop: 07/03/20 20:27 Last Admin: 07/03/20 20:33 Dose: 0.5 mg Documented by: Hydromorphone HCl (Dilaudid) 1 mg IVPUSH Q4H PRN PRN Reason: Pain (severe 7-10) Last Admin: 07/04/20 10:38 Dose: 1 mg Documented by: Sodium Chloride (Normal Saline) 1,000 mls @ 125 mls/hr IV ASDIRECTED [facility] Last Admin: 07/03/20 20:11 Dose: 125 mls/hr Documented by: Piperacillin Sod/Tazobactam (Sod 3.375 gm/ Sodium Chloride) 50 mls @ 100 mls/hr IV ONETIME [facility] Last Admin: 07/03/20 21:01 Dose: 100 mls/hr Documented by: Sodium Chloride (Normal Saline) 1,000 mls @ 125 mls/hr IV ASDIRECTED [facility] Last Admin: 07/04/20 13:52 Dose: 125 mls/hr Documented by: Morphine Sulfate (Ms Contin) 15 mg PO Q12H [facility] Last Admin: 07/05/20 02:00 Dose: 15 mg Documented by: Sodium Chloride (Saline Flush) 10 ml FLUSH ASDIRECTED PRN PRN Reason: Keep Vein Open Warfarin Sodium (Coumadin) 3 mg PO MoWeFr@1300 [facility] Warfarin Sodium (Coumadin) 1.5 mg PO SuTuThSa@1300 [facility] Last Admin: 07/04/20 14:09 Dose: 1.5 mg Documented by: - Exam Quality Assessment: Reports: DVT Prophylaxis (coumadin). Denies: Supplemental Oxygen General: Reports: Alert, Oriented, Cooperative, No Acute Distress Lungs: Reports: Clear to Auscultation, Normal Respiratory Effort Cardiovascular: Reports: Regular Rate, Regular Rhythm, No Murmurs GI/Abdominal Exam: Normal Bowel Sounds
[2020-07-06 11:47] VITALS: BP 125/69; PULSE 83
[2020-07-06] MEDS ORDERED: Naloxegol Oxalate 25 MG Tab PO SCH (23:42)
== END 2020-07-06 11:54 | disposition home or self-care (01) ==
LOC: JP.ED 19:53 → JP.ICU 23:32 → JP.MS 07-04 14:51
PROVIDERS: ADMIT Hospitalist; ATTEND Hospitalist
DX: S82.832A Other fracture of upper and lower end of left fibula, initial encounter for closed fracture (principal); S76.311A Strain of muscle, fascia and tendon of the posterior muscle group at thigh level, right thigh, initial encounter; S80.212A Abrasion, left knee, initial encounter; I25.10 Atherosclerotic heart disease of native coronary artery without angina pectoris; Z79.01 Long term (current) use of anticoagulants; I12.9 Hypertensive chronic kidney disease with stage 1 through stage 4 chronic kidney disease, or unspecified chronic kidney disease; E78.00 Pure hypercholesterolemia, unspecified; Z79.899 Other long term (current) drug therapy; E03.9 Hypothyroidism, unspecified; M25.551 Pain in right hip; W10.9XXA Fall (on) (from) unspecified stairs and steps, initial encounter; N18.30 Chronic kidney disease, stage 3 unspecified; Z88.2 Allergy status to sulfonamides; Z88.1 Allergy status to other antibiotic agents; Z91.030 Bee allergy status
CPT/HCPCS: 36415; 70450; 73502; 73552; 73562; 73610; 80053; 82728; 85025; 85379; 85610; 85730; 86140; 94640; 97110; 97116; 97140; 97163; 97165; 97530; 97535; A9270; J1170; J1650; J2543; J7030; J7050; J7512; 12002; 29515; 96361; 96365; 96372; 96375; 96376; 99203; 99217; 99219; 99225; 99284; 99284-25; G0378